=== PATIENT | female | born 1940 | race Asian ===

== ENCOUNTER 2016-12-15 19:01 | Emergency (ER) | payer MEDICARE, OTHER ==
[~2016-12-15] VITALS: Ht 160 cm; Wt 40.9 kg
[~2016-12-15 19:01] MED LIST: [UNRECOGNIZED DRUG - REMARK]; [UNRECOGNIZED DRUG - REMARK]
[2016-12-15 19:03] VITALS: Ht 160 cm; Wt 40.9 kg
[2016-12-15] MEDS ORDERED: DIATR MEGLU/DIATRIZOATE SODIUM 120 ML BTL ONE (19:35)
--- NOTE | 2016-12-15 20:11 | RADRPT ---
PROCEDURE: XR Abdomen CLINICAL INDICATION: Gastrograffin for G tube placement TECHNIQUE: An AP supine radiograph of the abdomen was submitted. COMPARISON: None FINDINGS: Contrast is seen to have been introduced into the stomach through a gastric tube in the stomach and second portion of the duodenum are opacified with no extravasation of contrast evident. The bowel gas pattern is nonspecific. No organomegaly or discrete mass is identified. A 9 mm calcific density projects to the left ilium which may represent a calcified node or residual contrast within a colonic diverticulum. Mild degenerative spine changes are noted. There is evidence of a midline sternotomy and multiple surgical pedro pablo are seen in the upper abdome n and left inferior chest. IMPRESSION: 1. The gastric tube is satisfactorily positioned without extravasation of contrast from the stomach . 2. A 9 mm calcific density projects the left iliac crest which could represent unit internal calcif ication or residual contrast within the colonic diverticulum. 3. Previous midline sternotomy with surgical pedro pablo seen at the left inferior chest and left upper abdomen. Physician Jessie Date Time Electronically viewed and signed by Physician Jessie on 12/15/2016 20:11 /
--- NOTE | 2016-12-15 20:44 | ERD ---
ER Documentation Chief Complaint Date/Time DATE: 12/15/16 TIME: 20:43 Chief Complaint [facility],GTube replacement HPI Patient is a 76-year-old female with encephalopathy who presents with a malfunctioning G-tube. She was brought in by ambulance for G-tube replacement. She came from [facility] home. She needs her G-tube replaced and is not flushing at this time. Her primary doctor is Dr. Cao. ROS All systems reviewed and are negative except as per history of present illness. Medications Home Meds Reported Medications [Cholesterol Medication Unknown Name] No Conflict Check 07/10/13 [Bp Med Unknown Name] No Conflict Check 07/10/13 Allergies Allergies: Coded Allergies: No Known Drug Allergies (Verified Allergy, 07/15/13) PMhx/Soc History of Surgery: Yes (CABG 2011,breast lumpectomy,tumor resection,salpingo- oophorectomy,omentecto) Hx Neurological Disorder: Yes (Cerebral infarction) Hx Respiratory Disorders: No Hx Cardiac Disorders: Yes (HIGH CHOLESTEROL, HTN,CAD,hemiplegia rt side weakness) Hx Psychiatric Problems: No Hx Miscellaneous Medical Probl: No Hx Alcohol Use: No Hx Substance Use: No Hx Tobacco Use: No Smoking Status: Unknown if ever smoked FmHx Unable to obtain Physical Exam Vitals Vital Signs Date Time Temp Pulse Resp B/P Pulse Ox O2 Delivery O2 Flow Rate FiO2 12/15/16 19:03 97.7 97 18 124/71 95 Physical Exam Const: Encephalopathic at baseline Head: Atraumatic Eyes: Normal Conjunctiva ENT: Normal External Ears, Nose and Mouth. Neck: Full range of motion..~ No meningismus. Resp: Clear to auscultation bilaterally Cardio: Regular rate and rhythm, no murmurs Abd: 18 Belgian G-tube in place Skin: No petechiae or rashes Back: No midline or flank tenderness Ext: No cyanosis, or edema Neur: Awake but encephalopathic at baseline Results 24 hrs Current Medications Medications (Trade) Dose Ordered Sig/Joshua Route PRN Reason Start Time Stop Time Status Last Admin Dose Admin Diatrizoate Meglum/ Diatrizoate Sod (Gastrografin 66-10 Solution) 120 ml STK-MED ONCE .ROUTE 12/15/16 19:35 3/23/17 19:36 DC Procedures/MDM G-tube Insertion by me: Sterile technique, local prep and lubrication, time out performed. Location: Epigastrum Device: 18 Belgian G-tube Technique: Kim pressure with twisting motion. Balloon inflation Results: Gastric contents expressed. Compl: none X-ray Abdomen 1V Interpreted by me: Free Air: None Bowel Gas: Nonspecific Contrast: Intraluminal Patient had a G-tube replaced successfully. The patient will be transferred by ambulance back to the nursing facility. She can follow-up with Dr. Cao within 1 week as needed. Departure Diagnosis: Primary Impression: Encounter for feeding tube placement Condition: Fair Patient Instructions: Feeding Tube Replacement Referrals: LUZ PACHECO MD (PCP) Additional Instructions: Call your primary care doctor TOMORROW for an appointment during the next 1 WEEK.Tell the attendance secretary that you were referred from this facility.See the doctor sooner or return here if your condition worsens before your appointment time. VIPIN JOE MD Dec 15, 2016 20:44
[2016-12-15 21:40] VITALS: BP 131/84; PULSE 99; RESP 18
== END 2016-12-15 22:12 | disposition home or self-care (01) ==
LOC: E/R 19:01
DX: Z43.1 Encounter for attention to gastrostomy (principal); I10 Essential (primary) hypertension; I25.10 Atherosclerotic heart disease of native coronary artery without angina pectoris; Z98.61 Coronary angioplasty status
CPT/HCPCS: 74000

== ENCOUNTER 2017-01-09 15:19 | Emergency (ER) | payer MEDICARE, OTHER ==
[~2017-01-09] VITALS: Ht 144.8 cm; Wt 36.4 kg
[2017-01-09 15:39] VITALS: Ht 144.8 cm; Wt 36.4 kg
--- NOTE | 2017-01-09 15:52 | ERD ---
ER Documentation Chief Complaint Date/Time DATE: 01/09/17 TIME: 15:41 Chief Complaint HPI This 76-year-old female is brought in from her facility for having some leakage around her gastrostomy tube. Her feeding tube is been in for years. Supposedly the tube was still flushing well and functional however there was leakage around the tube. There are no other complaints the patient's vital signs are stable and that is been no other issues noted the patient's medical condition. ROS All systems reviewed and are negative except as per history of present illness. Medications Home Meds Reported Medications [Cholesterol Medication Unknown Name] No Conflict Check 07/10/13 [Bp Med Unknown Name] No Conflict Check 07/10/13 Allergies Allergies: Coded Allergies: No Known Drug Allergies (Verified Allergy, 07/15/13) PMhx/Soc History of Surgery: Yes (CABG 2012,breast lumpectomy,tumor resection,salpingo- oophorectomy,omentecto) Hx Neurological Disorder: Yes (Cerebral infarction) Hx Respiratory Disorders: No Hx Cardiac Disorders: Yes (HIGH CHOLESTEROL, HTN,CAD,hemiplegia rt side weakness) Hx Psychiatric Problems: No Hx Miscellaneous Medical Probl: No Hx Alcohol Use: No Hx Substance Use: No Hx Tobacco Use: No Physical Exam Vitals Afebrile vital signs stable Physical Exam Const: [] Head: Atraumatic Eyes: Normal Conjunctiva ENT: Normal External Ears, Nose and Mouth. Neck: Full range of motion..~ No meningismus. Resp: Clear to auscultation bilaterally Cardio: Regular rate and rhythm, no murmurs Abd: Soft, non tender, non distended. Normal bowel sounds Skin: No petechiae or rashes Back: No midline or flank tenderness Ext: No cyanosis, or edema Neur: Awake and alert Psych: Normal Mood and Affect Procedures/MDM Patient's feeding tube was changed. He had a size 8 ET tube the reported had some leakage around although I did not observe any after 60 mL flush on her original 2. I did replace this tube with a 20 Serbian tube in slid in very easily indicating this is probably the appropriate size after stretching erosion from having a long-term feeding tube. It was immediate return of gastric contents. I also performed a 60 CBC flush of water which flushed easily and was able to be returned with mixture of gastric contents. No signs are stable I see no other issues currently. I talked to the as well and instructed that she may return to the emergency room if she develops any other problems. A Dionicio discharging with instructions to obtain PCP follow-up for gastroenterology consult if there are any other problems at the feeding tube. Feeding tube replacement note: Wound was deflated from a 18 Serbian feeding tube. The tube was easily removed. Was replaced with a 20 Serbian feeding tube of the exact same model. It slid in easily. Wound was inflated with 5 mL of saline. There is 60 mL flush of sterile water which returned gastric contents. Patient tolerated the procedure well there was no bleeding or any other complication. No leakage observed around tube. Departure Diagnosis: Primary Impression: Feeding tube dysfunction Condition: Stable Patient Instructions: Feeding Tube Replacement Additional Instructions: Call your primary care doctor TOMORROW for an appointment during the next 2-3 days for a gastroenterology referral if any further problems develop with feeding tube. See the doctor sooner or return here if your condition worsens before your appointment time. RED CANCINO DO Jan 09, 2017 15:52
[2017-01-10] MEDS ORDERED: GLUC1VIA6 IJ (17:35)
[2017-01-10] MEDS ORDERED: ASPI325T4 G-TUBE (17:37)
[2017-01-10] MEDS ORDERED: ASPI325T4 PO (17:37)
[2017-01-10] MEDS ORDERED: FURO20TA3 GTB (17:39)
[2017-01-10] MEDS ORDERED: POTA10TA18 GTB (17:44)
[2017-01-10] MEDS ORDERED: MULT-876 GTB (17:49)
[2017-01-10] MEDS ORDERED: FER325 GTB (17:51)
[2017-01-10] MEDS ORDERED: ATOR10TA65 G-TUBE (17:52)
[2017-01-10] MEDS ORDERED: METO-448 G-TUBE (17:55)
[2017-01-10] MEDS ORDERED: UDCOL G-TUBE (18:04)
[2017-01-10] MEDS ORDERED: MYL80 G-TUBE (18:06)
[2017-01-10] MEDS ORDERED: HYDR-906 G-TUBE (18:08)
[2017-01-10] MEDS ORDERED: IBUP800T25 G-TUBE (18:09)
[2017-01-10] MEDS ORDERED: UDREG GTB (18:11)
== END 2017-01-09 15:44 | disposition home or self-care (01) ==
LOC: E/R 15:19
DX: K94.23 Gastrostomy malfunction (principal); I10 Essential (primary) hypertension; I25.10 Atherosclerotic heart disease of native coronary artery without angina pectoris; Z95.1 Presence of aortocoronary bypass graft

== ENCOUNTER 2017-01-10 17:13 | Inpatient (IN) | payer MEDICARE, OTHER ==
[~2017-01-10] VITALS: Ht 157.5 cm; Wt 40.9 kg
--- NOTE | 2017-01-10 17:21 | ERA ---
ER Documentation Chief Complaint Date/Time DATE: 01/10/17 TIME: 17:21 Chief Complaint Palpitation HPI The patient is a 76-year-old female, presenting to the ER because of palpitation. She is unable to provide history, the history is obtained from [facility] and medical record. She recently had a G-tube placement yesterday Past medical history: Dysphagia, diabetes mellitus, dyslipidemia, history of CVA with aphasia, history of ovarian and breast carcinoma Past surgical history: CABG ROS All systems reviewed and are negative except as per history of present illness. Medications Home Meds Reported Medications Metoclopramide* (Reglan*) 10 Mg/10 Ml Soln, 4 MG GTB Q4 for FOR N/V, ML 01/10/17 Ibuprofen* (Ibuprofen*) 800 Mg Tablet, 800 MG G-TUBE Q8 for MILD PAIN LEVEL 1-3 , TAB 01/10/17 Hydrocodone/Acetaminophen ([place] 5-325 Tablet) 1 Each Tablet, 1 EACH G-TUBE Q6H for MODERATE PAIN, TAB 01/10/17 Simethicone* (Mylicon*) 80 Mg Tab, 80 MG G-TUBE QID Y for FLATULENCE, TAB 01/10/17 Docusate Sodium* (Docusate Sodium* Liq) 50 Mg/5 Ml Liquid, 10 MG G-TUBE BID for STOOL SOFTENER, ML 01/10/17 Metoprolol Tartrate* (Lopressor*) 25 Mg Tab, 12.5 MG G-TUBE BID, #60 TAB HOLD IF SBP<110 FOR HTN 01/10/17 Atorvastatin Calcium (Atorvastatin Calcium) 10 Mg Tablet, 10 MG G-TUBE QHS for HYPERLIPIDIMIA, #30 TAB 01/10/17 Ferrous Sulfate* (Ferrous Sulfate*) 325 Mg Tabec, 325 MG GTB DAILY for SUPPLEMENT, TAB 01/10/17 Multivit-Min/Iron Fum/Folic AC (Qbnah-Znueyny-Kpqxmpot Tablet) 1 Each Tablet, 1 EACH GTB DAILY for SUPPLEMENT, TAB 01/10/17 Potassium Citrate* (Potassium Citrate* ER) 10 Meq Tablet.sa, 20 MEQ GTB DAILY for K+SUPPLEMENT, TAB.SA 01/10/17 Furosemide* (Furosemide*) 20 Mg Tablet, 20 MG GTB DAILY for FOR HTN, #60 TAB 01/10/17 Aspirin* (Aspirin*) 325 Mg Tablet, 325 MG PO BID for CVA PROPHYLAXIS, TAB 01/10/17 Glucagon HCl (Glucagon HCl) 1 Mg Vial, 1 MG IJ, VIAL 01/10/17 Discontinued Reported Medications Aspirin* (Aspirin*) 325 Mg Tablet, 325 MG G-TUBE DAILY, TAB 01/10/17 [Cholesterol Medication Unknown Name] No Conflict Check 07/10/13 [Bp Med Unknown Name] No Conflict Check 07/10/13 Allergies Allergies: Coded Allergies: No Known Drug Allergies (Verified Allergy, Unknown, 01/10/17) PMhx/Soc History of Surgery: Yes (CABG 2012,breast lumpectomy,tumor resection,salpingo- oophorectomy,omentecto) Hx Neurological Disorder: Yes (Cerebral infarction) Hx Respiratory Disorders: No Hx Cardiac Disorders: Yes (HIGH CHOLESTEROL, HTN,CAD,hemiplegia rt side weakness) Hx Psychiatric Problems: No Hx Miscellaneous Medical Probl: No Hx Alcohol Use: No Hx Substance Use: No Hx Tobacco Use: No Physical Exam Vitals Vital Signs Date Time Temp Pulse Resp B/P Pulse Ox O2 Delivery O2 Flow Rate FiO2 01/10/17 17:34 Nasal Cannula 2 01/10/17 17:31 98.0 141 28 140/90 96 Physical Exam Const: No acute distress. Dehydrated Head: Atraumatic. Eyes: Normal Conjunctiva. ENT: Normal External Ears, Nose and Mouth. Neck: Full range of motion. No meningismus. Resp: Clear to auscultation bilaterally. Cardio: Regular tachycardic Abd: Soft, non distended, normal bowel sounds, non tender. Positive for G-tube Skin: No petechiae or rashes. Back: No midline or flank tenderness. Ext: No cyanosis, or edema. Neur: Limited due to her condition Psych: Unable to perform due to her condition Result Diagram: 01/10/17 1750 01/10/17 1750 Results 24 hrs Laboratory Tests Test 01/10/17 17:50 01/10/17 18:46 01/10/17 18:50 01/10/17 19:30 White Blood Count 17.310^3/ul Red Blood Count 3.8310^6/ul Hemoglobin 10.6g/dl Hematocrit 34.2% Mean Corpuscular Volume 89.3fl Mean Corpuscular Hemoglobin 27.7pg Mean Corpuscular Hemoglobin Concent 31.0g/dl Red Cell Distribution Width 15.9% Platelet Count 78516^3/UL Mean Platelet Volume 9.5fl Neutrophils % 83.8% Lymphocytes % 6.6% Monocytes % 6.8% Eosinophils % 0.2% Basophils % 0.3% Nucleated Red Blood Cells % 0.1/100WBC Neutrophils # 14.510^3/ul Lymphocytes # 1.110^3/ul Monocytes # 1.210^3/ul Eosinophils # 0.010^3/ul Basophils # 0.110^3/ul Nucleated Red Blood Cells # 0.010^3/ul Prothrombin Time 14.3Sec Prothrombin Time Ratio 1.1 INR International Normalized Ratio 1.11 Activated Partial Thromboplast Time 25.2Sec Sodium Level 144mmol/L Potassium Level 5.1mmol/L Chloride Level 108mmol/L Carbon Dioxide Level 22mmol/L Anion Gap 19 Blood Urea Nitrogen 58mg/dl Creatinine 0.72mg/dl Glucose Level 220mg/dl Lactic Acid Level 7.4mmol/L 4.9mmol/L Calcium Level 9.3mg/dl Total Bilirubin 0.3mg/dl Direct Bilirubin 0.00mg/dl Indirect Bilirubin 0.3mg/dl Aspartate Amino Transf (AST/SGOT) 40IU/L Alanine Aminotransferase (ALT/SGPT) 18IU/L Alkaline Phosphatase 129IU/L Troponin I 0.014ng/ml Total Protein 8.1g/dl Albumin 3.6g/dl Globulin 4.50g/dl Albumin/Globulin Ratio 0.80 Urine Color LT. YELLOW Urine Clarity SLIGHTLY CLOUDY Urine pH 6.0 Urine Specific [place] 1.025 Urine Ketones NEGATIVE Urine Nitrite POSITIVE Urine Bilirubin NEGATIVE Urine Urobilinogen 0.2 E.U./dL Urine Leukocyte Esterase 2+ Urine Microscopic RBC Pending Urine Microscopic WBC Pending Urine Hemoglobin TRACE Urine Glucose NEGATIVE% Urine Total Protein 1+ Bedside Urine pH (LAB) 6.0 Bedside Urine Protein (LAB) 2+ Bedside Urine Glucose (UA) Negative Bedside Urine Ketones (LAB) Trace Bedside Urine Blood Trace-lysed Bedside Urine Nitrite (LAB) Positive Bedside Urine Leukocyte Esterase (L 1+ Current Medications Medications (Trade) Dose Ordered Sig/Joshua Route PRN Reason Start Time Stop Time Status Last Admin Dose Admin Sodium Chloride 1,270 ml @ 1,270 mls/hr BOLUS X1 ONCE IV 01/10/17 18:00 01/10/17 18:59 DC 01/10/17 18:10 Vancomycin HCl 250 ml @ 125 mls/hr ONCE IVPB 01/10/17 19:00 01/10/17 20:59 01/10/17 20:05 Piperacillin Sod/ Tazobactam Sod (Zosyn 3.375gm/ 100 ml (Pmx)) 100 ml @ 200 mls/hr ONCE ONCE IVPB 01/10/17 19:00 01/10/17 19:29 DC 01/10/17 19:36 Procedures/MDM [place] [id number] Rad[facility] Main Line: [phone] DIAGNOSTIC IMAGING REPORT Patient: OLIVER REYNA : 1940 Age: 76 Sex: F MR #: [id number] DOS: 01/10/17 1730 Ordering MD: JOHN SMITH MD Location: E/R Room/Bed: PROCEDURE: XR Chest. CLINICAL INDICATION: Possible sepsis. TECHNIQUE: PA and Lateral views of the chest were obtained. COMPARISON: None. FINDINGS: The soft tissues are normal. A mediastinotomy was performed. There are clips in the left axilla. The heart is mildly enlarged. The cardiomediastinal silhouette and hilar structures are normal. The pulmonary vasculature is normal. There are vascular calcifications in the left-sided aorta with clips in the left side of the mediastinum. There are infiltrates in the left lung. There is a left pleural effusion. IMPRESSION: 1. There are pulmonary infiltrates in the left lung which may be the result of a pneumonia. 2. There is a left pleural effusion which is probably partially loculated. 3. Status post mediastinotomy with evidence of prior left axillary node dissection. 4. Atherosclerosis of the aortic arch. RPTAT:AAJJ Physician Amy Date Time Electronically viewed and signed by Physician Amy on 01/10/2017 18:52 JM/ CC: JOHN SMITH MD EKG: Read by emergency physician Rate/Rhythm: Sinus tachycardia 133 beats/min QRS, ST, T-waves: No ST elevation, no T inversion, left atrial enlargement, anterior ST and T abnormality Impression: Abnormal EKG MEDICAL MAKING DECISION: The patient is a 76-year-old female, presenting with acute septic shock, acute pneumonia, acute left pleural effusion, acute dehydration, acute cystitis. She was treated with Zosyn IV because suspicious for aspiration pneumonia, vancomycin IV, normal saline 30 mL/kg IV The differential diagnoses considered include but are not limited to aspiration pneumonia, pyelonephritis, intra-abdominal pathology Admit MDM: Patient's infectious symptoms have not stabilized and the patient is at risk of rapid decompensation. The patient will be admitted for careful hydration, antibiotic therapy, and infectious source control. Severe Sepsis criteria: Infectious source: Pneumonia, cystitis End organ damage indicated by: Lactate > 2.0 mmol/L Hypotension (SBP < 90 or >40 mmHG drop or MAP < 65) Acute Resp Failure (sat < 92% w/o oxygen) Sepsis Management: Time of recognition of severe sepsis/septic shock:18:00 Within 3 hours of recognition: Blood cultures x 2 before broad-spectrum antibiotics: Yes 30 ml/kg NS bolus completed Initial lactate 7.4 Repeat lactate pending Critical Care: Critical care time 35 minutes Emergent fluid management while maintaining close respiratory support. Provision of immediate and broad-spectrum antibiotic therapy. Simultaneous assessment for possible sources in order to direct targeted therapy. Consideration for invasive and chemical support to prevent cardiopulmonary collapse. Septic Shock Assessment: Any lactic acid > 4.0 yes Persistent hypotension (SBP < 90 or 40 mmHg drop, MAP < 65) despite 30 mL/kg IV fluid bolusno Volume Re-assessment for Septic Shock (post 30 ml/kg bolus): Temp96.8, BP138/79, HR96, RR22, Pox98% 3L Heart regular rate & rhythm Lungs no crackles Skin Warm & dry & pink Cap Refill less than 2 seconds Peripheral pulses radially present Persistent Hypotension Treatment: Comfort care no Central line not indicated Vasopressor started *not indicated I considered further perfusion assessment with CVP measurement, SCVO2, bedside ultrasound volume assessment, passive leg raise, trial of further fluid bolus. And proceeded withIVF Departure Diagnosis: Primary Impression: Septic shock Additional Impressions: Pneumonia Cystitis Pleural effusion on left Dehydration Anemia Condition: Serious Comments I discussed the findings with the patient. I discussed the patient with her physician Dr. Cao who was made aware of the lab, the treatment, the patient condition. The patient is admitted to telemetry at 7:10 PM JOHN SMITH MD Jan 10, 2017 17:21
[2017-01-10] MEDS ORDERED: GLUC1VIA6 IJ (17:35)
[2017-01-10] MEDS ORDERED: ASPI325T4 PO (17:37)
[2017-01-10] MEDS ORDERED: ASPI325T4 G-TUBE (17:37)
[2017-01-10] MEDS ORDERED: FURO20TA3 GTB (17:39)
[2017-01-10] MEDS ORDERED: POTA10TA18 GTB (17:44)
[2017-01-10] MEDS ORDERED: MULT-876 GTB (17:49)
[2017-01-10] MEDS ORDERED: FER325 GTB (17:51)
[2017-01-10] MEDS ORDERED: ATOR10TA65 G-TUBE (17:52)
[2017-01-10] MEDS ORDERED: METO-448 G-TUBE (17:55)
[2017-01-10] MEDS ORDERED: SOD CHLORIDE 0.9% 1,270 ML IV ONE (18:00)
[2017-01-10 18:02] LABS: ADD SCAN DIFF NO
[2017-01-10] MEDS ORDERED: UDCOL G-TUBE (18:04)
[2017-01-10 18:05] LABS: BASOPHIL # 0.1 10^3/ul (0.0-0.1); BASOPHILS % 0.3 % (0.0-2.0); EOSINOPHILS % 0.2 % (0.0-7.0); HEMATOCRIT 34.2 % (37.0-47.0); HEMOGLOBIN 10.6 g/dl (12.0-16.0); LYMPHOCYTES # 1.1 10^3/ul (0.8-2.9); LYMPHOCYTES % 6.6 % (15.0-51.0); MEAN CORPUSCULAR HEMOGLOBIN 27.7 pg (29.0-33.0); MEAN CORPUSCULAR VOLUME 89.3 fl (82.0-101.0); MEAN PLATELET VOLUME 9.5 fl (7.4-10.4); MONOCYTE # 1.2 10^3/ul (0.3-0.9); MONOCYTES % 6.8 % (0.0-11.0); NEUTROPHIL # 14.5 10^3/ul (1.6-7.5); NEUTROPHILS % 83.8 % (39.0-77.0); NUCLEATED RED BLOOD CELLS% 0.1 /100WBC (0.0-0.0); PLATELET COUNT 440 10^3/UL (140-415); RED BLOOD COUNT 3.83 10^6/ul (4.20-5.40); RED CELL DISTRIBUTION WIDTH 15.9 % (11.5-14.5); WHITE BLOOD COUNT 17.3 10^3/ul (4.8-10.8)
[2017-01-10] MEDS ORDERED: MYL80 G-TUBE (18:06)
[2017-01-10] MEDS ORDERED: HYDR-906 G-TUBE (18:08)
[2017-01-10] MEDS ORDERED: IBUP800T25 G-TUBE (18:09)
[2017-01-10] MEDS ORDERED: UDREG GTB (18:11)
[2017-01-10 18:15] LABS: INR 1.11; PROTIME 14.3 Sec (12.2-14.2); PT RATIO 1.1
[2017-01-10 18:16] LABS: PARTIAL THROMBOPLASTIN TIME 25.2 Sec (25.0-35.0)
[2017-01-10 18:22] LABS: ALBUMIN 3.6 g/dl (3.3-4.9); ALBUMIN/GLOBULIN RATIO 0.8; BILIRUBIN,INDIRECT 0.3 mg/dl (0-1.1); BILIRUBIN,TOTAL 0.3 mg/dl (0.2-1.3); CALCIUM 9.3 mg/dl (8.4-10.2); CREATININE 0.72 mg/dl (0.44-1.00); POTASSIUM 5.1 mmol/L (3.5-5.1); TOTAL PROTEIN 8.1 g/dl (6.1-8.1)
[2017-01-10 18:32] LABS: TROPONIN-I 0.014 ng/ml (0.00-0.12)
[2017-01-10 18:50] LABS: URINE BLOOD (Dip) POC Trace-lysed (NEGATIVE)
--- NOTE | 2017-01-10 18:52 | RADRPT ---
PROCEDURE: XR Chest. CLINICAL INDICATION: Possible sepsis. TECHNIQUE: PA and Lateral views of the chest were obtained. COMPARISON: None. FINDINGS: The soft tissues are normal. A mediastinotomy was performed. There are clips in the left axilla. The heart is mildly enlarged. The cardiomediastinal silhouette and hilar structures are normal. The pulmonary vasculature is normal. There are vascular calcifications in the left-sided aorta with cli ps in the left side of the mediastinum. There are infiltrates in the left lung. There is a left ple ural effusion. IMPRESSION: 1. There are pulmonary infiltrates in the left lung which may be the result of a pneumonia. 2. There is a left pleural effusion which is probably partially loculated. 3. Status post mediastinotomy with evidence of prior left axillary node dissection. 4. Atherosclerosis of the aortic arch. RPTAT:AAJJ Physician Amy Date Time Electronically viewed and signed by Physician Amy on 01/10/2017 18:52 FRITZ/
[2017-01-10] MEDS ORDERED: VANCOMYCIN 1 GM (PMX) 250 ML IVPB SCH (19:00)
[2017-01-10] MEDS ORDERED: PIPER-TAZO 3.375 GM IV (PMX) 100 ML IVPB ONE (19:00)
[2017-01-10 19:05] LABS: ADD UMIC YES; URINE BILIRUBIN (Dip) NEGATIVE (NEGATIVE); URINE BLOOD (Dip) TRACE (NEGATIVE); URINE COLOR LT. YELLOW (YELLOW); URINE GLUCOSE (Dip) NEGATIVE (NEGATIVE); URINE KETONES (Dip) NEGATIVE (NEGATIVE); URINE LEUKOCYTE ESTERASE (Dip) 2+ (NEGATIVE); URINE NITRITE (Dip) POSITIVE (NEGATIVE); URINE TOTAL PROTEIN (Dip) 1+ (NEGATIVE); URINE UROBILINOGEN (Dip) 0.2 E.U./dL (0.1-1.0)
[2017-01-10] MEDS ORDERED: SOD CHLORIDE 0.9% 1,000 ML IV ONE (21:00)
[2017-01-10 21:03] LABS: BACTERIA,URINE MANY; SQUAMOUS EPITHELIAL CELL,UR MODERATE
[2017-01-10] MEDS: SOD CHLORIDE 0.9% 1,000 ML IV SCH (21:35)
[2017-01-10] MEDS ORDERED: ACETAMINOPHEN 325 MG TAB PO PRN (22:00)
[2017-01-10] MEDS ORDERED: NACL 0.9% 3 ML SYG IV SCH (22:00)
[2017-01-10] MEDS ORDERED: ALBUTEROL/IPRATROPIUM (NEB) 3 ML AMP NEB PRN (22:00)
[2017-01-10] MEDS ORDERED: VANCOMYCIN IV PER PHARMACY XX SCH (22:00)
[2017-01-10] MEDS ORDERED: LORAZEPAM 2 MG INJ IV PRN (22:00)
[2017-01-10] MEDS ORDERED: ONDANSETRON 4 MG INJ IV PRN (22:00)
[2017-01-10] MEDS ORDERED: HYDROCODONE/APAP (5/325) TAB PO PRN (22:00)
[2017-01-10] MEDS ORDERED: DOCUSATE SODIUM 100 MG CAP PO PRN (22:00)
[2017-01-10 22:59] LABS: AADO2 Arterial 116.9 mmHg (7.0-24.0); Allen Test ACCEPTAB; Arterial Base Excess -3.7 mmol/L (-3.0-3); Arterial COHb 0.3 % (0.0-3.0); Arterial Fraction of Oxyhgb 97.4 % (93.0-99.0); Arterial HCO3 20.4 mmol/L (22.0-26.0); Arterial MetHb 0.4 % (0.0-1.5); Arterial Total Hemglobin 10.5 g/dl (12.0-18.0); Blood Gas IEPAP 15/5; MODE MASK - BIPAP
[2017-01-11] VITALS (13 sets, daily range): BP systolic 121–207; BP diastolic 72–129; PULSE 112–169; RESP 16–22; Ht 157.5 cm; Wt 40.9 kg
[2017-01-11] MEDS: morphine 2 MG INJ IV PRN ×4 (02:43→17:48)
[2017-01-11] MEDS ORDERED: PANTOPRAZOLE (EC) 40 MG TAB PO SCH (06:00)
[2017-01-11] MEDS: PIPER-TAZO 3.375 GM IV (PMX) 100 ML IV SCH ×2 (06:34→14:21)
[2017-01-11] MEDS: PANTOPRAZOLE 40 MG INJ IV SCH (06:54)
[2017-01-11] MEDS: DOCUSATE SODIUM 10 MG/ML (10ML CUP) GTB SCH ×2 (08:10→21:02)
[2017-01-11] MEDS: HEPARIN 5,000 UNIT/0.5 ML VIAL SC SCH ×2 (08:11→21:06)
[2017-01-11] MEDS: ASPIRIN 325 MG TAB PO SCH (08:11)
[2017-01-11] MEDS: SOD CHLORIDE 0.9% 1,000 ML IV SCH ×2 (08:42→14:22)
[2017-01-11] MEDS ORDERED: ASPIRIN 325 MG TAB PO SCH (09:00)
[2017-01-11] MEDS ORDERED: METOPROLOL 25 MG TAB GTB SCH (09:00)
[2017-01-11] MEDS ORDERED: IPRATROPIUM (NEB) 0.5 MG/2.5 ML AMP HHN PRN (10:00)
[2017-01-11] MEDS ORDERED: LEVALBUTEROL (NEB) 0.63 MG/3 ML AMP HHN PRN (10:00)
[2017-01-11 10:58] LABS: ADD SCAN DIFF NO
--- NOTE | 2017-01-11 11:00 | HP ---
DATE OF ADMISSION: 01/10/2017 REASON FOR ADMISSION: Sepsis, pneumonia, urinary tract infection, acute respiratory failure. HISTORY OF PRESENT ILLNESS: The patient is a very unfortunate, very ill 76-year-old French female w ith history of coronary artery disease, status post CABG, breast cancer status post lumpectomy, ovar lorraine cancer stage IV, status post recent debulking surgery as the patient was positive for carcinomat osis, also history of hemorrhagic stroke. The patient has dysphagia, aphasia, G-tube feeding. She has been seen by the oncologist, Dr. Delilah Novak, who discussed about palliative chemo versus hospice care. Overall, the patient's long-term prognosis is very poor. The patient currently resides at [facility]. She presented briefly to the ER, actually yesterday, for G -tube malfunction and a G-tube was placed and then she was transferred back to [facility]. I w as informed that she has slight erythema in the abdominal area, so I started her on vancomycin. I o rdered labs and I noted that patient's white count was 19, BUN and creatinine was around 60/0.8, so I broadened her antibiotic regimen to vancomycin and cefepime with IV hydration. I went to see the patient and the patient appeared to be tachycardic, quite weak. Case discussed in detail with doyle campbell and we decided to transfer her to the hospital. Upon arrival to the hospital, the patient was evaluated more extensively. White count was 17.3, hem oglobin 10.6, hematocrit 34. BUN and creatinine was elevated at 58/0.72, and lactic acid was remark ably high at 7.4. The patient was slightly hypoxic and tachypneic. She was placed on BiPAP. She u nderwent further testing including a chest x-ray which showed there are pulmonary infiltrates in the left lung, which may be the result of pneumonia. There is a left pleural effusion which probably i s partially loculated, status post mediastinotomy with evidence of prior left axillary node dissecti on. Atherosclerosis of the aortic arch was seen. UA was as well positive, she had positive nitrite s, +2 leukocyte esterase and WBCs greater than 50, all suggestive of urosepsis, pneumonia. Overall, she was tachycardic but blood pressure was under control. Upon brief discussion with the family, t he son did not want aggressive measures, but it is not in paper yet, but he did state that they do w ant any chest compressions. I just called the son again, his name is Brayan, and tried to gain more information. Overall, the patient is in guarded condition. The patient has been anxious, she has b een tachycardic, now heart rate is around the 120s. The patient is arousable and alert, but overall in discomfort. The patient is admitted for further care. PAST MEDICAL HISTORY: Includes: 1. Coronary artery disease, status post CABG. 2. History of breast cancer, status post lumpectomy and lymph node dissection on the left side. 3. Metastatic ovarian cancer with carcinomatosis, status post debulking surgery. 4. History of hemorrhagic cerebrovascular accident. 5. Dysphagia. 6. Aphasia. 7. Previous history of Clostridium difficile colitis. 8. Anemia. PAST SURGICAL HISTORY: Includes CABG, salpingo-oophorectomy, debulking surgery for metastatic ovari an cancer. Previous echocardiogram showed ejection fraction of 60%. MRI of the brain recently showed right occ ipital medial temporal infarct, right LEG ASSEMBLER. The patient's CT of abdomen and pelvis shows as before c arcinomatosis again. MEDICATIONS: The patient's medications include the followin. Ferrous sulfate 325 mg daily. 2. Lipitor 20 mg at bedtime. 3. Metoprolol 12.5 b.i.d. 4. Simethicone 80 mg p.r.n. 5. Trenary p.r.n. 6. Motrin p.r.n. 7. Accu-Chek before meals and at bedtime. 8. Lasix 20 mg daily. 9. Aspirin 325 mg daily. 10. KCl 10 mEq 2 capsules daily. 11. I started her on cefepime and vancomycin yesterday. 12. She has been on Glucerna 1.2 at 65 mL for 20 hours. PHYSICAL EXAMINATION: VITAL SIGNS: Temperature is 97.4, pulse right now at bedside is in 120s, saturation is 97% on nasal cannula, blood pressure 124/88. GENERAL: The patient is sick looking, pale, temporal wasting. CARDIOVASCULAR: S1 and S2, tachycardic. LUNGS: Decreased bilaterally, slight rhonchi and wheezing is noted. ABDOMEN: Soft. There is a G-tube in place. Slight erythema around the site. There is a surgical scar with slight erythema noted. LOWER EXTREMITIES: No clubbing, cyanosis, or edema. The patient is spontaneously moving all extremi ties. GENITOURINARY: Milian to gravity. LABORATORY DATA: White count is 17.3, hemoglobin 10.6, hematocrit 34, platelet count 440, neutrophi ls 84%, lymphocytes 7%. Chemistry: Sodium is 144, potassium 5.1, chloride 108, bicarbonate 22, BUN is 58, creatinine 0.72, glucose of 220. Lactic acid, last one was 5.9, I ordered one for this morn ing, it is pending. All labs today are pending. These labs were done yesterday on admission. AST 40, ALT 18, alkaline phosphatase 129. Albumin 3.6. UA was positive as noted above. INR 1.11. ABG done on admission shows a pH of 7.4, pCO2 of 33, pO2 of 130, bicarbonate 20, saturation is 98%. Chest x-ray as above. EKG: Sinus tachycardia, probable left atrial enlargement, ST-T abnormality, consider anterior ischemia, 133 beats per minute. ASSESSMENT AND PLAN: This is a very unfortunate, very sick 76-year-old female with histor y of coronary artery disease, metastatic ovarian cancer stage IV with carcinomatosis, status post de bulking surgery, anemia, history of hemorrhagic cerebrovascular accident, who presents septic second zacarias to pneumonia and urinary tract infection. 1. Respiratory. O2 support will be provided. Noted ABG results. Breathing treatment will be prov ided as needed and we will monitor. The patient will be kept n.p.o. by mouth. 2. Cardiovascular. The patient is tachycardic, likely from sepsis, anxiety, possible pain. We olga l treat underlying acute medical issues and monitor closely in telemetry unit. The patient will be placed on deep venous thrombosis prophylaxis with heparin. Continue beta blockers. We will follow. 3. Gastrointestinal. The patient will be placed on Protonix for gastrointestinal prophylaxis. 4. Infectious disease. The patient is septic with urinary tract infection and pneumonia. The heaven ent was started on cefepime and vancomycin. Follow up all cultures. Monitor for diarrhea as bakari flores has history of Clostridium difficile. Condition is guarded. 5. Metastatic ovarian cancer with poor prognosis. She was supposed to undergo another CAT scan to evaluate her malignancy. Dr. Delilah Novak is her oncologist. 6. Dysphagia and aphasia, status post cerebrovascular accident. We will start G-tube feedings soon . N.p.o. by mouth. The patient did, I believe, pass a swallow evaluation at the [facility], but now she remains n.p.o. by mouth. 7. History of coronary artery disease. The patient will continue aspirin and statin. 8. Anemia. Monitor hemoglobin and hematocrit, p.r.n. transfusion will be given. 9. Acute renal failure, likely secondary to prerenal azotemia and dehydration secondary to sepsis. Continue with fluid hydration. 10. The patient is no chest compressions. We will discuss further code status and plan of care and expectations from the family. Overall, her prognosis is guarded, long-term prognosis is very poor. Overall, would recommend comfo rt measures and possible even hospice care. I had spoken with the son yesterday and visited the pat ient yesterday at [facility]. We will continue with close communication with the family. We w ill follow. Dictated By: LUZ MURO/PHYLLIS Conf#: [id number] DID#: [id number]
[2017-01-11 11:04] LABS: BASOPHILS % 0.2 % (0.0-2.0); EOSINOPHILS % 0.1 % (0.0-7.0); HEMOGLOBIN 9.4 g/dl (12.0-16.0); LYMPHOCYTES # 0.9 10^3/ul (0.8-2.9); LYMPHOCYTES % 4.5 % (15.0-51.0); MEAN CORPUSCULAR HEMOGLOBIN 26.5 pg (29.0-33.0); MEAN CORPUSCULAR HGB CONC 29.4 g/dl (32.0-37.0); MEAN CORPUSCULAR VOLUME 90.1 fl (82.0-101.0); MEAN PLATELET VOLUME 9.2 fl (7.4-10.4); MONOCYTE # 1.2 10^3/ul (0.3-0.9); MONOCYTES % 5.9 % (0.0-11.0); NEUTROPHIL # 16.9 10^3/ul (1.6-7.5); NEUTROPHILS % 87.2 % (39.0-77.0); PLATELET COUNT 339 10^3/UL (140-415); RED BLOOD COUNT 3.55 10^6/ul (4.20-5.40); WHITE BLOOD COUNT 19.3 10^3/ul (4.8-10.8)
[2017-01-11 11:30] LABS: ALBUMIN/GLOBULIN RATIO 0.76; BILIRUBIN,INDIRECT 0.3 mg/dl (0-1.1); BILIRUBIN,TOTAL 0.3 mg/dl (0.2-1.3); CALCIUM 7.7 mg/dl (8.4-10.2); CREATININE 0.64 mg/dl (0.44-1.00); POTASSIUM 4.8 mmol/L (3.5-5.1); TOTAL PROTEIN 6.9 g/dl (6.1-8.1)
[2017-01-11 12:00] LABS: THYROID STIMULATING HORMONE 0.839 MIU/L (0.465-4.680)
[2017-01-11] MEDS: INSULIN ASPART [NOVOLOG] 3 ML PEN SC SCH ×3 (12:00→21:00)
[2017-01-11] MEDS ORDERED: LORAZEPAM 2 MG INJ IV ONE (16:30)
[2017-01-11] MEDS ORDERED: FUROSEMIDE 40 MG INJ IV ONE (16:30)
[2017-01-11] MEDS: metroNIDAZOLE 500 MG/NS (PMX) 100 ML IVPB SCH ×2 (16:41→22:48)
[2017-01-11] MEDS: METHYLPREDNISOLONE 125 MG INJ IV SCH ×2 (16:41→22:48)
--- NOTE | 2017-01-11 16:43 | PN ---
DATE: ADDENDUM: I am seeing her a second time. The is at bedside. The patient appears very anxious, compla ining of shortness of breath. Case discussed with nursing staff. We will prescribe her Lasix, ster oids, breathing treatments, and Ativan as the patient is very, very anxious. She remains tachycardi c. We will ask Dr. Cosby, the electro mechanic, to see the patient in consultation. We also ordered a n echocardiogram and BNP for tomorrow. We will continue to monitor closely. The patient overall is very ill. She has metastatic stage IV ovarian cancer with carcinomatosis with recent debulking keyana kaz. Overall, long-term prognosis is very poor. The patient remains in telemetry unit. Lactic ac id now normalized at 2.1 as the patient has been receiving fluids and antibiotic management. We olga l add Flagyl to the regimen as the patient also previously had a history of Clostridium difficile co litis. We will follow closely. The patient's condition remains guarded. Dictated By: LUZ MURO/PHYLLIS Conf#: [id number] DID#: [id number]
[2017-01-11] MEDS: IPRATROPIUM (NEB) 0.5 MG/2.5 ML AMP HHN SCH ×2 (17:30→20:07)
[2017-01-11] MEDS: VANCOMYCIN 500MG/NS (PMX) 100 ML IVPB SCH (21:01)
[2017-01-11] MEDS: ATORVASTATIN 10 MG TAB GTB SCH (21:02)
[2017-01-11] MEDS: CEFEPIME 1GM/50 ML (PMX) 50 ML IVPB SCH (21:03)
[2017-01-11] MEDS: METOPROLOL 25 MG TAB GTB SCH (21:18)
[2017-01-11] MEDS: LORAZEPAM 2 MG INJ IV PRN (22:49)
[2017-01-12] VITALS (11 sets, daily range): BP systolic 125–138; BP diastolic 61–95; PULSE 104–128; RESP 16–20
[2017-01-12] MEDS: morphine 2 MG INJ IV PRN ×2 (01:31→17:21)
[2017-01-12] MEDS: IPRATROPIUM (NEB) 0.5 MG/2.5 ML AMP HHN SCH ×6 (01:44→20:06)
[2017-01-12] MEDS: ACCU-CHEK XX SCH (02:00)
[2017-01-12] MEDS: METHYLPREDNISOLONE 125 MG INJ IV SCH (05:17)
[2017-01-12] MEDS: PANTOPRAZOLE 40 MG INJ IV SCH (05:17)
[2017-01-12] MEDS: LORAZEPAM 2 MG INJ IV PRN (05:18)
[2017-01-12] MEDS: metroNIDAZOLE 500 MG/NS (PMX) 100 ML IVPB SCH ×3 (05:18→22:24)
[2017-01-12] MEDS ORDERED: GLUCAGON 1 MG INJ IM PRN (07:30)
[2017-01-12] MEDS ORDERED: GLUCOSE GEL 15 GRAM TUBE BUCCAL PRN (07:30)
[2017-01-12] MEDS ORDERED: DEXTROSE 50% 50 ML SYRINGE IV PRN ×2 (07:30)
[2017-01-12] MEDS ORDERED: GLUCOSE GEL 15 GRAM TUBE PO PRN ×2 (07:30)
[2017-01-12 07:43] LABS: ADD SCAN DIFF NO
[2017-01-12 07:48] LABS: BASOPHILS % 0.1 % (0.0-2.0); HEMATOCRIT 33.9 % (37.0-47.0); HEMOGLOBIN 9.9 g/dl (12.0-16.0); MEAN CORPUSCULAR HEMOGLOBIN 26.8 pg (29.0-33.0); MEAN CORPUSCULAR HGB CONC 29.2 g/dl (32.0-37.0); MEAN CORPUSCULAR VOLUME 91.6 fl (82.0-101.0); MEAN PLATELET VOLUME 9.8 fl (7.4-10.4); MONOCYTE # 0.2 10^3/ul (0.3-0.9); MONOCYTES % 1.4 % (0.0-11.0); NEUTROPHIL # 15.4 10^3/ul (1.6-7.5); NEUTROPHILS % 90.7 % (39.0-77.0); NUCLEATED RED BLOOD CELLS% 0.1 /100WBC (0.0-0.0); PLATELET COUNT 382 10^3/UL (140-415); RED CELL DISTRIBUTION WIDTH 16.5 % (11.5-14.5)
[2017-01-12 07:57] LABS: MAGNESIUM 2.6 mg/dl (1.7-2.5); PHOSPHORUS 4.2 mg/dl (2.5-4.9)
[2017-01-12 08:00] LABS: ALBUMIN 3.5 g/dl (3.3-4.9); ALBUMIN/GLOBULIN RATIO 0.81; BILIRUBIN,INDIRECT 0.4 mg/dl (0-1.1); BILIRUBIN,TOTAL 0.4 mg/dl (0.2-1.3); CALCIUM 8.3 mg/dl (8.4-10.2); CREATININE 0.87 mg/dl (0.44-1.00); POTASSIUM 4.3 mmol/L (3.5-5.1); TOTAL PROTEIN 7.8 g/dl (6.1-8.1)
[2017-01-12] MEDS: INSULIN ASPART [NOVOLOG] 3 ML PEN SC SCH ×4 (08:00→21:00)
[2017-01-12] MEDS: DOCUSATE SODIUM 10 MG/ML (10ML CUP) GTB SCH ×2 (08:10→21:46)
[2017-01-12] MEDS: METOPROLOL 25 MG TAB GTB SCH ×5 (08:14→21:00)
[2017-01-12] MEDS: CEFEPIME 1GM/50 ML (PMX) 50 ML IVPB SCH ×2 (08:14→21:46)
[2017-01-12] MEDS: ASPIRIN 325 MG TAB PO SCH (08:15)
[2017-01-12] MEDS: HEPARIN 5,000 UNIT/0.5 ML VIAL SC SCH ×2 (08:16→21:00)
[2017-01-12 08:28] LABS: THYROID STIMULATING HORMONE 0.585 MIU/L (0.465-4.680)
[2017-01-12] MEDS ORDERED: FUROSEMIDE 40 MG INJ IV ONE (09:00)
--- NOTE | 2017-01-12 09:17 | RADRPT ---
PROCEDURE: XR Chest. CLINICAL INDICATION: sob TECHNIQUE: Single frontal view of the chest was obtained. COMPARISON: Chest x-ray from 01/10/2017 FINDINGS: Sternotomy wires and clips consistent with CABG are again noted. There are surgical clips in the left axilla consistent with prior axillary lymph node dissection. The aortic arch is calcified. Heart size is within normal limits. There is a stable large effusion on the left including in the fissure which obscures evaluation of t he infiltrate seen previously in the left lung. The right lung is clear without evidence of an effusion. There is decreased osseous mineralization. IMPRESSION: No significant interval change compared to the prior chest x-ray from 01/10/2017. RPTAT: EE Physician Moise Date Time Electronically viewed and signed by Physician Moise on 01/12/2017 09:17 /
[2017-01-12] MEDS: LISINOPRIL 10 MG TAB GTB SCH (10:37)
[2017-01-12] MEDS: ASPIRIN 81 MG TAB GTB SCH (10:37)
[2017-01-12] MEDS ORDERED: LIDOCAINE 1% (MPF) 5 ML VIAL SC ONE ×2 (12:00→19:00)
--- NOTE | 2017-01-12 12:30 | PN ---
DATE: 01/12/2017 SUBJECTIVE: The patient seen. The patient now resting, eyes are closed, appears to be more comfort able. I spoke with the at bedside and he gave me his phone and I spoke with the patient's n iece. We discussed briefly, the patient's guarded prognosis and possible recommendation for comfort measures such as hospice would be probably a good recommendation, which I made. I appreciate Dr. Ligia shultz's cardiology input. I also asked for pulmonology consult as the chest x-ray shows persistent l eft pleural effusion. The patient may benefit from thoracentesis for symptomatic relief. Yesterday , I did start the patient on steroids, diuretic therapy and breathing treatments to support her resp iratory failure. PHYSICAL EXAMINATION: VITAL SIGNS: Temperature is 98.1, afebrile, remains tachycardic at 104, respirations 18, blood pres sure 125/78, saturation is 98% on 2 liters. GENERAL: The patient overall is sick looking, frail, pale. CARDIOVASCULAR: S1 and S2, tachycardic. LUNGS: Actually now clear with decreased breath sounds on the left compared to the right. ABDOMEN: Soft, slightly distended. Slight discomfort upon deep palpation. She has a G-tube in jeannie ce with abdominal scar as patient is status post debulking surgery for her carcinomatosis. EXTREMITIES: There is no clubbing, cyanosis, or edema. The patient is spontaneously moving all ext remities. The patient overall right now lethargic, she did receive Ativan this morning, but overall more comfortable. LABORATORY DATA: White count 17, hemoglobin 9.9, hematocrit 34, platelet count 382, neutrophils 91% , lymphocytes 6%. Chemistry: Sodium is 149, potassium 4.3, chloride 119, bicarbonate 17, BUN 46, c reatinine 0.87, glucose of 119. Last glucose level 117. Hemoglobin A1c 6.7. Magnesium 2.6. BNP i s high at 12,100. TSH 0.585. Albumin is 3.5. UA was positive on admission. Microbiology still pe nding as urine culture on admission showed gram-negative rods 50 to 60,000, but I did start the pat ient already on antibiotics at the halfway. Blood cultures are negative. Chest x-ray done today shows the following: No interval change. There is basically sternotomy wire s and clips with CABG. There are surgical clips in the left axilla consistent with prior axillary l ymph node dissection. There is stable large effusion on the left, including in the fissure which ob scures evaluation of the infiltrate seen previously in the left lung. The right lung is clear witho ut evidence of an effusion. There is decreased osseous mineralization. MEDICATIONS: 1. Aspirin 81 mg daily. 2. Lopressor 25 q.i.d. 3. Zestril 10 mg daily. 4. Hypoglycemia protocol. 5. Accu-Chek before meals and at bedtime. 6. Lipitor 10 mg at bedtime. 7. Cefepime 1 gram q.12h. 8. Vancomycin dose per pharmacy. 9. Ipratropium or Atrovent every 4 hours. 10. Solu-Medrol 60 IV q.8h. 11. Flagyl 500 IV q.8h. 12. Aspart insulin and aspart NovoLog per sliding scale. 13. Xopenex every 6 hours p.r.n. 14. Atrovent every 2 hours p.r.n. 15. Heparin 5000 subcutaneous q.12h. 16. Colace 100 mg b.i.d. 17. Protonix 40 IV daily. 18. Zofran p.r.n. 19 Tylenol p.r.n. 20. Hustle p.r.n. 21. Morphine p.r.n. 22. Colace p.r.n. ASSESSMENT AND PLAN: This is a 76-year-old female with history of coronary artery disease , metastatic ovarian cancer stage IV with carcinomatosis, status post debulking surgery, previous hi story of breast cancer, also recent unfortunate hemorrhagic CVA, dysphagia, G-tube feeding, who now presented with sepsis secondary to pneumonia and urinary tract infection, also moderate left pleural effusion. 1. Respiratory. Continue supportive care. The patient with moderate left pleural effusion persist ent. We will consult pulmonology regarding possible thoracentesis for symptomatic relief of her sym ptoms. Continue diuretic therapy, breathing treatment and taper down steroids. The patient is on a ntibiotics for aspiration pneumonia or healthcare-related pneumonia. 2. Cardiovascular: The patient remains tachycardic, likely from sepsis, anxiety, pain. Continue a ntibiotic management, beta blockers and pain medications, treat underlying medical issue. The patie nt is on heparin for deep venous thrombosis prophylaxis, aspirin for cardiac protection. Se Stronghdat's input. Follow up echocardiogram results. Remains on diuretic therapy. BNP is high . 3. Gastrointestinal. Continue Protonix for gastrointestinal prophylaxis. 4. Infectious disease. The patient with urinary tract infection and pneumonia. Follow up urine cu lture results. The patient also has previous history of Clostridium difficile colitis. Continue ce fepime, vancomycin and Flagyl. White count remains high. The patient also is on IV steroids. 5. Metastatic ovarian cancer with evidence of carcinomatosis, status post debulking surgery. On to p of that she had a stroke. Overall, prognosis is poor. Would recommend hospice care. 6. Dysphagia and aphasia, status post cerebrovascular accident. Continue G-tube feeding as the pat ient appears to be better today. 7. Anemia. Continue to monitor hemoglobin and hematocrit. P.r.n. transfusion. 8. Dehydration, likely from sepsis. Observe. 9. Diabetes mellitus. Glucose levels are well controlled. Continue Accu-Cheks and insulin coverag e as needed. 10. The patient is selective code only, no chest compressions, but I am discussing with the family the patient's condition. Would recommend full DNR and possible comfort measures. 11. We will definitely try to keep patient comfortable with p.r.n. Ativan and morphine. We will fo llow. Dictated By: LUZ MURO/PHYLLIS Conf#: [id number] DID#: [id number]
--- NOTE | 2017-01-12 13:22 | CONS ---
DATE OF ADMISSION: 01/10/2017 DATE OF CONSULTATION: 01/12/2017 TYPE OF CONSULTATION: Pulmonary. REASON FOR CONSULTATION: Shortness of breath. Thank you, Dr. Cao, for this consultation. HISTORY OF PRESENT ILLNESS: This is an unfortunate 76-year-old lady with a history of breast cancer , status post lumpectomy, ovarian cancer stage IV, with recent debulking surgery secondary to carcin omatosis, who presented with increasing altered mental status and shortness of breath, this morning found to be more altered. The patient was found to be more somnolent and in more respiratory distres s the last 24 hours. I was called to evaluate. PAST MEDICAL HISTORY: Includes coronary artery disease, breast cancer with lumpectomy and node diss ection on the left, a history of metastatic ovarian cancer with carcinomatosis and debulking surgery , a history of hemorrhagic CVA, dysphagia, aphasia, a history of Clostridium difficile colitis. MEDICATIONS: Per chart. ALLERGIES: NONE. PHYSICAL EXAMINATION: GENERAL: Chronically ill-appearing lady, largely somnolent, who grimaces to painful stimuli. VITAL SIGNS: Temperature 98, pulse is 100, blood pressure 125/78, O2 saturation 96% on 3 L nasal ca nnula. NECK: Supple. No JVD or lymphadenopathy. CARDIAC EXAM: S1, S2. No added sounds or murmurs. CHEST: Diminished air entry bilaterally. ABDOMEN: Soft, nontender. No guarding or rebound. EXTREMITIES: No cyanosis, clubbing or edema. NEUROLOGIC: Generalized weakness. LABORATORY: White count 17, hemoglobin 9.9, platelets 382. BUN 46, creatinine 0.87, BNP 74836, INR 1.1. Arterial blood gas with a pH of 7.4, pCO2 of 33, pO2 of 130. Chest x-ray shows left pleural effusion. IMPRESSION AND PLAN: 1. Metastatic ovarian cancer, status post debulking surgery. 2. History of breast cancer. 3. History of lumpectomy. 4. Large pleural effusion, possibly metastatic in origin. The patient will require: 1. Thoracentesis, left lung. 2. Aspiration precautions. 3. Supplemental O2. 4. Broad-spectrum antibiotics. 5. Gentle diuresis as tolerated. 6. Consider a discussion about code status, given her overall very poor prognosis. Dictated By: BALDO BISHOP MD SV/PHYLLIS Conf#: [id number] [facility]#: [id number]
[2017-01-12] MEDS: VANCOMYCIN 500MG/NS (PMX) 100 ML IVPB SCH (21:43)
[2017-01-12] MEDS: ATORVASTATIN 10 MG TAB GTB SCH (21:46)
[2017-01-12] MEDS: METHYLPREDNISOLONE 40 MG INJ IV SCH (21:48)
[2017-01-13] VITALS (15 sets, daily range): BP systolic 127–181; BP diastolic 77–93; PULSE 98–122; RESP 16–30
[2017-01-13] MEDS: IPRATROPIUM (NEB) 0.5 MG/2.5 ML AMP HHN SCH ×6 (01:08→21:11)
[2017-01-13] MEDS: LORAZEPAM 2 MG INJ IV PRN ×2 (01:17→23:42)
[2017-01-13] MEDS: ACCU-CHEK XX SCH (02:00)
[2017-01-13] MEDS: PANTOPRAZOLE 40 MG INJ IV SCH (05:17)
[2017-01-13] MEDS: metroNIDAZOLE 500 MG/NS (PMX) 100 ML IVPB SCH ×3 (05:17→23:43)
--- NOTE | 2017-01-13 07:22 | CONS ---
DATE OF ADMISSION: 01/10/2017 DATE OF CONSULTATION: 01/12/2017 TYPE OF CONSULTATION: Cardiology. REFERRING PHYSICIAN: Luz Tolbert MD REASON FOR CONSULTATION: Coronary artery disease, respiratory failure, congestive heart failure. CHIEF COMPLAINT: Sepsis, pneumonia, urinary tract infection, respiratory failure. HISTORY OF PRESENT ILLNESS: Thank you for this referral. History was obtained from extensive revie w of the chart, review of the old chart, discussion with the physician and staff. Patient herself i s unable to provide any history to me. This is an unfortunate 76-year-old Faroese female with histor y of coronary artery disease, status post bypass, history of breast cancer, lumpectomy, history of o varian cancer stage IV, status post recent debulking surgery and positive ovarian carcinomatosis. T he patient also has a history of hemorrhagic stroke. The patient has been in a half-way, was br ought in because of beginning of shortness of breath and sepsis and pneumonia. The patient is nonve rbal, he is aphasic. Also has been in vent dependent respiratory distress. This morning is severel y hypertensive. Also, has been tachycardic. No other history could be obtained from the patient. PAST MEDICAL HISTORY: As above-mentioned, patient has history of coronary artery disease, status po st coronary bypass, history of breast carcinoma status post lumpectomy and lymph node dissection of the left side, history of metastatic ovarian cancer stage IV with carcinomatosis, status post debulk ing surgery, history of hemorrhagic CVA, dysphagia, aphagia, history of CVA in the past, history of anemia. SURGICAL HISTORY: History of coronary bypass, history of salpingo-oophorectomy, debulking surgery _ ___ ovarian cancer, history of lumpectomy. MEDICATIONS PRIOR TO ADMISSION: Include: 1. Iron. 2. Lipitor. 3. Metoprolol 12.5. 4. [place] p.r.n. 5. Lasix 20. 6. Aspirin 325. 7. Potassium. 8. Has been started on antibiotics. REVIEW OF SYSTEMS: As above mentioned. The patient has a G-tube and is aphasic and is unable to eat or speak. All other negative except for above-mentioned. PHYSICAL EXAMINATION: VITAL SIGNS: Temperature 98.1, heart rate of 128, blood pressure of 190/110. Respiratory rate of 3 2, saturating 96%. HEENT: Normocephalic, atraumatic. Appears to be in respiratory distress ____ is aphasic. NECK: Positive for JVD. CARDIOVASCULAR: Tachycardic, systolic murmur. PULMONARY: Rhonchi at the base. GASTROINTESTINAL: Status post recent surgery with some erythema at the vent site. EXTREMITIES: With trivial lower extremity edema. NEUROLOGIC: Awake aphasic, though. LABORATORY: Sodium 149, potassium 4.3, BUN of 46, creatinine 0.83, glucose 119. Hemoglobin A1c of 6.7. Magnesium is 2.6. Albumin is 3.5. TSH is 0.585. WBC of 17, hemoglobin 9.9, platelets 382. O n admission pH of 7.4, pCO2 of 33, pO2 of 130, white count of 20. DIAGNOSTIC DATA: Chest x-ray shows pulmonary infiltrates in the left lung which can be the result o f pneumonia. EKG was personally reviewed, sinus tachycardia with T-wave inversion anteriorly consistent with ante rior ischemia. ASSESSMENT AND PLAN: 1. Hypoxemic respiratory failure. 2. Coronary artery disease, history of coronary bypass. 3. Abnormal EKG, probably related to above. 4. Hypertension. 5. History of hemorrhagic CVA. 6. Dyslipidemia. 7. Diabetes. 8. History of metastatic ovarian cancer. 9. Dysphagia status post PEG placement. 10. Azotemia. RECOMMENDATIONS: I will give the patient a dose of IV Lasix. Increase the metoprolol to q.i.d. and monitor closely. Change the aspirin to 81 mg daily only. Echocardiogram has been ordered. We olga l try to check and follow. Setting as tolerated will be continued. Nutritional support will be cont inued as tolerated. Long-term prognosis appears to be poor though. Diabetic management as per Dr. Tolbert. Will continue to monitor on telemetry. Thank you for this referral. Dictated By: STACY LEIVA MD AV/NTS Conf#: [id number] DID#: [id number] CC: LUZ TOLBERT MD;*End*
[2017-01-13 07:51] LABS: ADD SCAN DIFF NO
[2017-01-13 07:55] LABS: BASOPHILS % 0.1 % (0.0-2.0); HEMATOCRIT 32.8 % (37.0-47.0); HEMOGLOBIN 10.1 g/dl (12.0-16.0); LYMPHOCYTES # 0.9 10^3/ul (0.8-2.9); LYMPHOCYTES % 6.4 % (15.0-51.0); MEAN CORPUSCULAR HEMOGLOBIN 27.5 pg (29.0-33.0); MEAN CORPUSCULAR HGB CONC 30.8 g/dl (32.0-37.0); MEAN CORPUSCULAR VOLUME 89.4 fl (82.0-101.0); MEAN PLATELET VOLUME 9.6 fl (7.4-10.4); MONOCYTE # 0.8 10^3/ul (0.3-0.9); MONOCYTES % 5.6 % (0.0-11.0); NEUTROPHIL # 12.7 10^3/ul (1.6-7.5); NEUTROPHILS % 86.2 % (39.0-77.0); NUCLEATED RED BLOOD CELLS% 0.2 /100WBC (0.0-0.0); PLATELET COUNT 354 10^3/UL (140-415); RED BLOOD COUNT 3.67 10^6/ul (4.20-5.40); RED CELL DISTRIBUTION WIDTH 17.4 % (11.5-14.5); WHITE BLOOD COUNT 14.7 10^3/ul (4.8-10.8)
[2017-01-13 08:10] LABS: ALBUMIN 3.3 g/dl (3.3-4.9); ALBUMIN/GLOBULIN RATIO 0.82; BILIRUBIN,INDIRECT 0.3 mg/dl (0-1.1); BILIRUBIN,TOTAL 0.3 mg/dl (0.2-1.3); CALCIUM 8.1 mg/dl (8.4-10.2); CREATININE 0.88 mg/dl (0.44-1.00); INR 1.22; MAGNESIUM 2.9 mg/dl (1.7-2.5); POTASSIUM 3.7 mmol/L (3.5-5.1); PROTIME 15.5 Sec (12.2-14.2); PT RATIO 1.2; TOTAL PROTEIN 7.3 g/dl (6.1-8.1)
[2017-01-13] MEDS: DOCUSATE SODIUM 10 MG/ML (10ML CUP) GTB SCH ×2 (08:26→20:21)
[2017-01-13] MEDS: ASPIRIN 81 MG TAB GTB SCH (08:26)
[2017-01-13] MEDS: LISINOPRIL 10 MG TAB GTB SCH (08:26)
[2017-01-13] MEDS: METHYLPREDNISOLONE 40 MG INJ IV SCH ×2 (08:26→20:20)
[2017-01-13] MEDS: METOPROLOL 25 MG TAB GTB SCH ×2 (08:27→12:19)
[2017-01-13] MEDS: HEPARIN 5,000 UNIT/0.5 ML VIAL SC SCH ×2 (08:28→20:25)
[2017-01-13] MEDS: INSULIN ASPART [NOVOLOG] 3 ML PEN SC SCH ×4 (08:29→20:25)
[2017-01-13 08:39] LABS: THYROID STIMULATING HORMONE 0.395 MIU/L (0.465-4.680)
[2017-01-13] MEDS: CEFEPIME 1GM/50 ML (PMX) 50 ML IVPB SCH ×2 (08:41→20:20)
--- NOTE | 2017-01-13 13:02 | RADRPT ---
Echocardiogram Report Patient Name: OLIVER REYNA Gender: Female Date: 1940 Study Date: 12-Jan-2017 Molding Associate: Brent VALDEZ [facility] Location: 5547 Ref. Physician: LUZ TOLBERT Quality: Technically Difficult Study Procedures: Transthoracic echocardiogram with complete 2D, M-Mode, and doppler examination. Indications: Shortness of breath. Tachycardia. 2D/M Mode Doppler Measurement Value Normal Ranges Measurement Value Normal Ranges LVIDd 2D 4.0 3.5 - 5.6 cm PELON Vmax 1.1 cm2 LVIDs 2D 1.7 2.1 - 4.1 cm AV Peak Salvatore 2.0 m/sec FS 2D 55.9 % AV Peak PG 17.0 mmHg LVPWd 2D 0.6 0.6 - 1.1 cm AI Peak PG 59.0 mmHg IVSd 2D 0.6 0.6 - 1.1 cm AI Peak Salvatore 3.8 m/sec IVS/LVPW 2D 1.0 AI PHT 596.0 msec AoR Diam 2D 2.1 2.0 - 3.7 cm LVOT Peak Salvatore 1.1 m/sec LA/Ao 2D 2 0 - 1 LVOT Peak PG 5.0 mmHg EDV 2D 61.6 cm3 MV E Peak Salvatroe 1.0 m/sec ESV 2D 5.3 cm3 MV A Peak Salvatore 1.3 m/sec LA Dimen 2D 3.2 2.3 - 4.0 cm MV E/A 0.8 LVOT Diam 1.6 cm MV Decel Time 130 msec LVOT Area 2.0 cm2 MV E/A 0.8 TR Peak Salvatore 3.8 m/sec TR Peak PG 57.0 mmHg RVSP 65.0 mmHg Findings Left Ventricle: Normal left ventricular systolic function. Normal left ventricular cavity size. Ejection fraction is visually estimated at 60 %. Tissue Doppler/Mitral Doppler indices are consistent with impaired relaxation (Stage I diastolic dysfunction). Right Ventricle: Normal right ventricular size. Normal right ventricular systolic function. Left Atrium: The left atrium is normal in size. Right Atrium: The right atrium is normal in size. Mitral Valve: Mild mitral leaflet calcification. Moderate mitral annular calcification. Mild mitral valve regurgitation. Aortic Valve: Aortic valve not well visualized. No hemodynamically significant aortic stenosis by doppler. Trace to mild aortic valve regurgitation. Tricuspid Valve: Normal appearance of the tricuspid valve. There is moderate tricuspid regurgitation. Pulmonic Valve: Pulmonic valve not well visualized. Pericardium: Pleural effusion seen. Aorta: Normal aortic root. IVC: Normal size and normal respiratory collapse consistent with normal right atrial pressure. Conclusions 1.Normal left ventricular systolic function. Normal left ventricular cavity size. Ejection fraction is visually estimated at 60 %. Tissue Doppler/Mitral Doppler indices are consistent with impaired relaxation (Stage I diastolic dysfunction). 2.Mild mitral leaflet calcification. Moderate mitral annular calcification. Mild mitral valve regurgitation. 3.Aortic valve not well visualized. No hemodynamically significant aortic stenosis by doppler. Trace to mild aortic valve regurgitation. 4.Normal appearance of the tricuspid valve. There is moderate tricuspid regurgitation. 5.Pleural effusion seen. Electronically Signed By: Raymundo Cosby 13-Jan-2017 13:01:41 -0700 Patient Name: OLIVER REYNA Study Date: 12-Jan-2017 [id number]
[2017-01-13] MEDS: ACETYLCYSTEINE 600 MG CAP PO SCH ×2 (14:30→20:31)
[2017-01-13] MEDS ORDERED: SOD CHLORIDE 0.9% 1,000 ML IV SCH (14:30)
[2017-01-13] MEDS ORDERED: BARIUM SULF 2% 450 ML BTL (BERRY SMOOTHIE) PO ONE (14:30)
--- NOTE | 2017-01-13 15:52 | PN ---
DATE: 01/13/2017 CARDIOLOGY FOLLOWUP SUBJECTIVE: Discussed with the staff. Rhythm strip reviewed. The patient remains in sinus rhythm , sinus tachycardia. The patient remains nonverbal and aphasic. Discussed with Dr. Tolbert. MEDICATIONS: Reviewed. PHYSICAL EXAMINATION: VITAL SIGNS: Temperature 98.2, heart rate of 116, blood pressure 160/80, respiration rate of 20, sa turating 97%. HEENT: Normocephalic, atraumatic. Pupils are equal. Appears to be anxious. CARDIOVASCULAR: Tachycardic. PULMONARY: Anteriorly with no wheezes. Rhonchi at the bases. GASTROINTESTINAL: Soft, status post previous surgeries. EXTREMITIES: With trivial edema. NEUROLOGIC: Awake, however, aphasic. PSYCHIATRIC: Anxious. LABORATORY DATA: WBC of 14.7, hemoglobin 10.1, platelets 354. Sodium 150, potassium 3.7, BUN of 60 , creatinine 0.88, glucose 230. INR is 1.22. Chest x-ray shows a stable large effusion in the left. Echocardiogram was personally reviewed, whic h showed ejection fraction estimated about 60%. ASSESSMENT AND PLAN: 1. Sinus tachycardia, multifactorial. 2. Respiratory failure. 3. History of hemorrhagic cerebrovascular accident. 4. Hypertension. 5. Dyslipidemia. 6. Diabetes. 7. Metastatic ovarian cancer. 8. Pleural effusion. Thoracentesis is pending. RECOMMENDATIONS: I will increase the metoprolol dose given her hypertension and tachycardia. Rakesh nue with the respiratory care. Dictated By: STACY LEIVA MD AV/PHYLLIS Conf#: [id number] DID#: [id number] CC: LUZ TOLBERT MD;*End*
--- NOTE | 2017-01-13 15:55 | PN ---
DATE: 01/13/2017 SUBJECTIVE: Patient seen and remains quite lethargic. Case discussed with Dr. Sandhu and Dr. Hameed at. I just called the and he gave me the phone number for the son who speaks Japanese. His name is Brayan, phone number [phone]. I left a message. I briefly spoke with the social welfare administrator earlier, not much assistance provided. PHYSICAL EXAMINATION: VITAL SIGNS: Temperature 98.2, pulse 115, respirations 20, blood pressure 162/81, saturation 96% on 6 liters. GENERAL: The patient is lethargic, very weak, pale. HEENT: Dry mucous membranes. CARDIOVASCULAR: S1 and S2, tachycardic. LUNGS: Decreased bilaterally, otherwise clear. ABDOMEN: Soft, slightly distended. G-tube is in place. EXTREMITIES: There is no clubbing, cyanosis, or edema. LABORATORY DATA: White count 14.7, hemoglobin 10.1, hematocrit 33, platelets 354, neutrophils 86%, lymphocytes 6%. Chemistry: Sodium was 150, potassium 3.7, chloride 120, bicarbonate 21, BUN is 16, creatinine 0.88, glucose of 230. Last glucose levels 236 and 223. TSH is 0.395. Free T4 is leobardo l at 1. BNP is high at 14,000. UA was positive and urine culture did show ESBL E. coli sensitive t o amikacin, cefepime, imipenem, and nitrofurantoin. MEDICATIONS: Include: 1. Solu-Medrol 40 IV hours. 2. Aspirin 81 mg daily. 3. Lopressor 25 daily. 4. Zestril 10 mg daily. 5. Hypoglycemia protocol. 6. Accu-Chek q.a.c. and at bedtime. 7. Lipitor 10 mg at bedtime. 8. Cefepime 1 gram q.12h. 9. Vancomycin dose per pharmacy. 10. ____p.r.n. Ativan q.4h. 11. Flagyl 500 IV q.8h. 12. Xopenex q.6h. 13. Atrovent q.2h. p.r.n. 14. Heparin 5000 subQ q12h. 15. Colace 10 mg b.i.d. 16. Protonix 40 mg daily. 17. Zofran p.r.n. 18. Tylenol p.r.n. 19. [place] p.r.n. 20. Morphine p.r.n. 21. Colace p.r.n. 22. Vancomycin p.r.n. Of note, patient does have gross hematuria. ASSESSMENT AND PLAN: This is a very unfortunate 76-year-old female with history of garcia ry artery disease, metastatic ovarian cancer stage IV, with carcinomatosis, status post debulking carrington rgery, history of breast cancer, unfortunate status post recent hemorrhagic cerebrovascular accident , dysphagia, G-tube feeding, now presented with sepsis secondary to pneumonia, UTI and moderate lef t pleural effusion. 1. Respiratory. The patient to undergo thoracentesis today. Awaiting the procedure to be done. C ase discussed with nursing staff and electrician supervisor airplane. Hopefully, that will definitely provide some sy mptomatic relief. Will send fluid to rule out malignancy or infection. Remains on antibiotics for healthcare-related pneumonia. 2. Cardiovascular: The patient with tachycardia, persistent, likely multifactorial. Continue bloo d thinners. Hemoglobin and hematocrit remain stable. Continue beta blockers. Dr. Cosby is carolinei best. 3. Gastrointestinal. Continue gastrointestinal prophylaxis. 4. Infectious disease. Currently being treated for beta-lactamase Escherichia coli in the urine an d pneumonia. Continue cefepime, vancomycin and Flagyl. The patient is afebrile. 5. Metastatic ovarian cancer with carcinomatosis, status post debulking surgery. Prognosis is guar ded. I would recommend hospice care. 6. Dysphagia and aphasia. Continue G-tube feeding for now. 7. Anemia. Hemoglobin and hematocrit stable, observe. 8. Dehydration also worsened by diuretic therapy. 9. Diabetes mellitus. Start the patient on basal insulin. Continue Accu-Chek before meals and at bedtime with insulin coverage. 10. I just left a message with the son. I would like to talk to him about the patient's code statu s and plan of care, as my recommendation would be comfort measures. We will follow. Dictated By: LUZ MURO/PHYLLIS Conf#: [id number] DID#: [id number]
--- NOTE | 2017-01-13 16:13 | CONS ---
Date/Time of Note Date/Time of Note DATE: 01/13/17 TIME: 16:11 Consult Date/Type/Reason Admit Date/Time Jan 10, 2017 at 19:22 Initial Consult Date Type of Consultation: Pulmonary Subjective Still with mild respiratory distress. Pending thoracentesis. Objective Vital Signs Date Time Temp Pulse Resp B/P Pulse Ox O2 Delivery O2 Flow Rate FiO2 01/13/17 16:09 122 01/13/17 15:43 98.6 18 181/93 97 01/13/17 12:56 Nasal Cannula 6.0 01/10/17 21:40 40 Intake and Output 01/12/17 01/12/17 01/13/17 15:00 23:00 07:00 Intake Total 710 ml 860 ml Output Total 1100 ml 350 ml Balance -390 ml 510 ml Exam PHYSICAL EXAMINATION: GENERAL: Chronically ill-appearing lady, largely somnolent, who grimaces to painful stimuli. VITAL SIGNS: as above. NECK: Supple. No JVD or lymphadenopathy. CARDIAC EXAM: S1, S2. No added sounds or murmurs. CHEST: Diminished air entry bilaterally. ABDOMEN: Soft, nontender. No guarding or rebound. EXTREMITIES: No cyanosis, clubbing or edema. NEUROLOGIC: Generalized weakness. Results/Medications Result Diagram: 01/13/17 0642 01/13/17 0642 Results 24 hrs Laboratory Tests Test 01/12/17 17:19 01/12/17 21:50 01/13/17 02:05 01/13/17 06:42 Bedside Glucose 148 169 215 White Blood Count 14.7 H Red Blood Count 3.67 L Hemoglobin 10.1 L Hematocrit 32.8 L Mean Corpuscular Volume 89.4 Mean Corpuscular Hemoglobin 27.5 L Mean Corpuscular Hemoglobin Concent 30.8 L Red Cell Distribution Width 17.4 H Platelet Count 354 Mean Platelet Volume 9.6 Neutrophils % 86.2 H Lymphocytes % 6.4 L Monocytes % 5.6 Eosinophils % 0.0 Basophils % 0.1 Nucleated Red Blood Cells % 0.2 H Neutrophils # 12.7 H Lymphocytes # 0.9 Monocytes # 0.8 Eosinophils # 0.0 Basophils # 0.0 Nucleated Red Blood Cells # 0.0 Prothrombin Time 15.5 H Prothrombin Time Ratio 1.2 INR International Normalized Ratio 1.22 Sodium Level 150 H Potassium Level 3.7 Chloride Level 120 H Carbon Dioxide Level 21 Anion Gap 13 Blood Urea Nitrogen 60 H Creatinine 0.88 Glucose Level 230 #H Calcium Level 8.1 L Magnesium Level 2.9 H Total Bilirubin 0.3 Direct Bilirubin 0.00 Indirect Bilirubin 0.3 Aspartate Amino Transf (AST/SGOT) 35 Alanine Aminotransferase (ALT/SGPT) 30 Alkaline Phosphatase 114 B-Type Natriuretic Peptide 81248 H Total Protein 7.3 Albumin 3.3 Globulin 4.00 H Albumin/Globulin Ratio 0.82 Thyroid Stimulating Hormone (TSH) 0.395 L Free Thyroxine 1.00 Test 01/13/17 07:51 01/13/17 12:01 Bedside Glucose 223 H 236 H Medications Current Medications Ondansetron HCl (Zofran Inj) 4 mg Q6H PRN IV NAUSEA AND/OR VOMITING; Start at 22:00 Acetaminophen (Tylenol Tab) 650 mg Q6H PRN PO PAIN LEVEL 1-3 OR FEVER; Start at 22:00 Acetaminophen/ Hydrocodone Bitart ([place] (5/325)) 1 tab Q6H PRN PO PAIN LEVEL 4 -6; Start 01/10/17 at 22:00 Morphine Sulfate (morphine) 2 mg Q4H PRN IV PAIN LEVEL 7-10 Last administered on 01/12/17 17:21; Admin Dose 2 MG; Start 01/10/17 at 22:00 Docusate Sodium (Colace) 100 mg Q12H PRN PO CONSTIPATION; Start 01/10/17 at 22: 00 Heparin Sodium (Porcine) (Heparin (5000 Units/0.5 ml)) 5,000 unit Q12 SC Last administered on 01/13/17 08:28; Admin Dose 5,000 UNIT; Start 01/11/17 at 09:00 Atorvastatin Calcium (Lipitor) 10 mg QHS GTB Last administered on 01/12/17 21: 46; Admin Dose 10 MG; Start 01/11/17 at 21:00 Docusate Sodium 10 mg 10 mg BID GTB Last administered on 01/13/17 08:26; Admin Dose 10 MG; Start 01/11/17 at 09:00 Vancomycin HCl (Vancocin) 100 ml @ 100 mls/hr Q24H IVPB Last administered on 21:43; Admin Dose 100 MLS/HR; Start 01/11/17 at 20:00 Pantoprazole (Protonix Iv) 40 mg DAILY@06 IV Last administered on 01/13/17 05: 17; Admin Dose 40 MG; Start 01/11/17 at 06:00 Diagnostic Test (Pha) 1 ea 1 ea 02 XX ; Start 01/12/17 at 02:00 Cefepime HCl (Maxipime 1gm/50 ml (Pmx)) 50 ml @ 100 mls/hr Q12 IVPB Last administered on 01/13/17 08:41; Admin Dose 100 MLS/HR; Start 01/11/17 at 21:00 Lorazepam 0.5 mg 0.5 mg Q2 PRN IV ANXIETY Last administered on 01/13/17 01:17 ; Admin Dose 0.5 MG; Start 01/11/17 at 17:00 Metronidazole (Flagyl 500 Mg (Pmx)) 100 ml @ 100 mls/hr Q8 IVPB Last administered on 01/13/17 13:35; Admin Dose 100 MLS/HR; Start 01/11/17 at 16:30 Miscellaneous Information 1 ea NOTE XX ; Start 01/12/17 at 07:30 Glucose (Glutose) 15 gm Q15M PRN PO DECREASED GLUCOSE; Start 01/12/17 at 07:30 Glucose (Glutose) 22.5 gm Q15M PRN PO DECREASED GLUCOSE; Start 01/12/17 at 07: 30 Dextrose (D50w Syringe) 25 ml Q15M PRN IV DECREASED GLUCOSE; Start 01/12/17 at 07:30 Dextrose (D50w Syringe) 50 ml Q15M PRN IV DECREASED GLUCOSE; Start 01/12/17 at 07:30 Glucagon (Glucagen) 1 mg Q15M PRN IM DECREASED GLUCOSE; Start 01/12/17 at 07:30 Glucose (Glutose) 15 gm Q15M PRN BUCCAL DECREASED GLUCOSE; Start 01/12/17 at 07 :30 Aspirin (Aspirin) 81 mg DAILY GTB Last administered on 01/13/17 08:26; Admin Dose 81 MG; Start 01/12/17 at 09:00 Lisinopril (Zestril) 10 mg DAILY GTB Last administered on 01/13/17 08:26; Admin Dose 10 MG; Start 01/12/17 at 09:00 Methylprednisolone Sodium Succinate (Solu-Medrol) 40 mg Q12 IV Last administered on 01/13/17t 08:26; Admin Dose 40 MG; Start 01/12/17 at 21:00 Insulin Glargine (Lantus) 6 unit DAILY@08 SC ; Start 01/14/17 at 08:00 Metoprolol Tartrate (Lopressor) 50 mg QID GTB ; Start 01/13/17 at 17:00 Acetylcysteine 600 mg 600 mg BID PO ; Start 01/13/17 at 14:30 Sodium Chloride (NS) 1,000 ml @ 70 mls/hr [id number] IV ; Start 01/13/17 at 14:30 Miscellaneous Information (*Rx Drug Level Order Reminder*) 1 ONCE ONCE XX ; Start 01/13/17 at 19:00; Stop 01/13/17 at 19:01 Assessment/Plan Chief Complaint/Hosp Course IMPRESSION 1. Metastatic ovarian cancer, status post debulking surgery. 2. History of breast cancer. 3. History of lumpectomy. 4. Large pleural effusion, possibly metastatic in origin. Plan 1. Thoracentesis, left lung. Scheduled for today. 2. Aspiration precautions. 3. Supplemental O2. 4. Broad-spectrum antibiotics. 5. Gentle diuresis as tolerated. 6. Consider a discussion about code status, given her overall very poor prognosis. Problems: BALDO BISHOP MD, [facility] Jan 13, 2017 16:13
[2017-01-13] MEDS ORDERED: LIDOCAINE 1% (MPF) 5 ML VIAL ONE (16:45)
[2017-01-13] MEDS ORDERED: METOPROLOL 25 MG TAB GTB SCH (17:00)
[2017-01-13] MEDS ORDERED: IODIXANOL LOCM 100 ML BTL ONE (17:00)
[2017-01-13] MEDS ORDERED: SOD CHLORIDE 0.9% 100 ML ONE (17:00)
--- NOTE | 2017-01-13 17:47 | RADRPT ---
PROCEDURE: Ultrasound guided thoracentesis CLINICAL INDICATION: Pleural fluid TECHNIQUE: Multiple sonographic images were obtained through the patient's chest. A site in the p geeta's left lower chest was selected and marked. The area was prepped and draped in the usual ster ile fashion. 1% lidocaine was utilized. A 19-gauge Yueh needle was advanced into the pleural space and the introducer was connected to a vacuum drainage system. A total of 1000 cc of clear yellow fl uid were drained at the end of the procedure. The patient tolerated the procedure well. The specimen was sent for laboratory evaluation. RPTAT: AA COMPARISON: None FINDINGS: Pleural effusion. RPTAT: AA IMPRESSION: Uncomplicated ultrasound-guided left thoracentesis. Physician Moise Date Time Electronically viewed and signed by Physician Moise on 01/13/2017 17:46 /
[2017-01-13] MEDS: METOPROLOL 50 MG TAB GTB SCH ×2 (18:05→20:23)
[2017-01-13 18:35] LABS: FLUID TYPE THORACENTESIS FLUID
[2017-01-13 18:36] LABS: FLUID GLUCOSE 183 mg/dl
[2017-01-13 18:37] LABS: FLUID TOTAL PROTEIN 4.8 g/dl; FLUID TYPE THORACENTESIS FLUID
[2017-01-13] MEDS: ATORVASTATIN 10 MG TAB GTB SCH (20:21)
[2017-01-13] MEDS: morphine 2 MG INJ IV PRN (20:21)
[2017-01-13 20:45] LABS: FLUID APPEARANCE BLOODY; FLUID RBC EST 3+; FLUID TYPE PLEURAL; FLUID WBC'S 483 /cmm
[2017-01-13 20:46] LABS: FLUID LYMPHOCYTES 73 %; FLUID MONOCYTES 11 %; FLUID NEUTROPHILS 16 %
[2017-01-13] MEDS: VANCOMYCIN 500MG/NS (PMX) 100 ML IVPB SCH (21:20)
[2017-01-13] MEDS ORDERED: FUROSEMIDE 40 MG INJ IV ONE (22:00)
[2017-01-13] MEDS ORDERED: SOD CHLORIDE 0.9% IVPB SCH (22:00)
[2017-01-13] MEDS ORDERED: VANCOMYCIN IVPB SCH (22:00)
[2017-01-13 22:04] LABS: AADO2 Arterial 584.2 mmHg (7.0-24.0); Allen Test ACCEPTAB; Arterial Base Excess -11.3 mmol/L (-3.0-3); Arterial COHb 0.3 % (0.0-3.0); Arterial Fraction of Oxyhgb 94.4 % (93.0-99.0); Arterial HCO3 14.8 mmol/L (22.0-26.0); Arterial MetHb 0.5 % (0.0-1.5); MODE MASK - NRB
[2017-01-14] VITALS: BP 134/76; RESP 16
[2017-01-14 00:11] VITALS: PULSE 109
[2017-01-14 00:22] VITALS: PULSE 108
[2017-01-14 00:57] VITALS: PULSE 0
[2017-01-14] MEDS: IPRATROPIUM (NEB) 0.5 MG/2.5 ML AMP HHN SCH (01:00)
--- NOTE | 2017-01-14 01:43 | EN ---
Date/Time of Note Date/Time of Note DATE: 01/14/17 TIME: 00:52 Event Note Medicine Medicine Event Note RAPID RESPONSE TEAM The rapid response team was called to room 5547 at 0020 for this 76-year-old female in respiratory distress who was originally admitted for sepsis and pneumonia. When I arrived, she was found to be in respiratory distress with agonal respirations while wearing BiPAP, her was at the bedside. She had been put on BiPAP approximately 2 hours prior, after the results of her ABG , which was done at 2201 while she was on a nonrebreather with an FiO2 of 100%, came back. I reviewed that ABG: PH 7.257; PCO2 33.9; PO2 94.9; bicarb 14.8; base excess -11.3; hemoglobin 12. Physical exam shows her to be mouth breathing with agonal respirations. Her BP was normal and her HR elevated at 113. Her heartbeat had a tachy rate and a regular rhythm. Respiratory rate approximately 30. Her lungs had decreased air flow throughout. Coarse rhonchi were noted. This was a no chest compression patient. Her was present and I spoke with him about her options. She either needed to be intubated or put on comfort care measures. He was trying to decide if he wanted her to be intubated , he was leaning towards no intubation, but their son wanted her to be. I spoke with the briefly and let him know that the decision was his to make, but that considering what other family members say is a good thing. He went to talk with his son on the phone, and when he returned, he requested that she be intubated. ER physician, Dr. Mishra, was called to come up to intubate patient which was done successfully. An ICU bed had already been set aside for her and she was being bagged. I stayed just outside the door in the hallway as I plan to accompany patient down to the ICU and make sure she was situated. Her primary doctor, Elio More, had already been advised of her respiratory status shortly after the ABG results were back. I did not feel he needed to be updated at this time. The transporter arrived, but before the transfer could be made, I was called into the room as patient's heart rate dropped into the 50s. She was given 1 amp of atropine, but her heart rate went to 36 instead of improving. At this point, she had no pulse and an amp of epi was pushed, but no ROSC. Bagging was continued throughout. With a flashlight, I checked each of patient's eyes they were both fixed and at mid position. She could not be roused with a sternal rub, but she did have meds on board from the intubation. Bagging was stopped at this point and I listened for a heartbeat while I felt for the carotid pulse. I did not hear or feel anything. I then listened to her lungs and watched her chest. There were no sounds of respiration and there was no visible chest wall movement. Time of called at 0049. I spoke briefly with patient's and let him know that she had . Critical care time spent: 35 minutes. JR BRAY DO Jan 14, 2017 01:03
--- NOTE | 2017-01-14 01:58 | QN ---
Documentation Comment Called to room 5547 emergent intubation . Patient had reportedly been desaturating on nonrebreather mask. Intubation requested by Dr. Yamilet Jackson. Patient was desaturating to level of 69 on BiPAP. ET intubation note: I performed bag mask ventilation and get the patient up to saturation of 98% from 69. RSI was used with 20 mg of etomidate and 100 mg of rocuronium. Patient was easily intubated to well visualize cords with a size 7.5 ET tube using a size Mac 4 blade. Oxygen saturation afterward was 100%. Place the patient on a ventilator settings FiO2 100%, tidal volume 500, rate 20 , no PEEP. Patient tolerated the procedure well there were no complications. Dr. Yamilet Jackson was present at bedside. RED CANCINO DO Jan 14, 2017 01:58
[2017-01-14] MEDS ORDERED: INSULIN GLARGINE [LANtus] 3 ML PEN SC SCH (08:00)
--- NOTE | 2017-01-14 10:13 | RADRPT ---
PROCEDURE: CT chest, abdomen, and pelvis with contrast. CLINICAL INDICATION: Pain. History of breast and ovarian cancer. TECHNIQUE: CT scan of the chest, abdomen, and pelvis was performed after the uneventful intravenous administrat ion of 85 cc of Visipaque 320. Coronal and sagittal reformatted images were obtained from the axial source images. Images were reviewed on a high-resolution PACS workstation. The total exam CTDI equal s 5.21 mGy and the total exam DLP equals 367.76 mGy-cm. One or more of the following dose reduction techniques were used: - Automated exposure control. - Adjustment of the mA and/or kV according to patient size. - Use of iterative reconstruction technique. COMPARISON: None available. FINDINGS: Lungs, pleura, and airways: There are small bilateral pleural effusions with associated dependent compressive atelectasis. Ther e is no focal consolidation or pneumothorax. There has been prior median sternotomy.. There are no concerning pulmonary nodules or masses. The tracheobronchial tree is patent and normal in course and caliber. Cardiovascular system and mediastinum: The heart is normal in size without pericardial thickening or effusion. There are multivessel garcia ry artery calcifications. There are atherosclerotic changes of the aorta, which is nonaneurysmal. Th e esophagus is mildly distended with fluid throughout its course. There are enlarged paratracheal an d right axillary lymph nodes with a dominant paratracheal node measuring 11 mm in short axis. There are surgical clips in the left axilla. Hepatobiliary system and spleen: There is diffuse fatty infiltration of the liver. There is no focal hepatic lesion identified. Ther e is no intra or extrahepatic biliary ductal dilatation. There layering stones within the gallbladde r. The spleen is unremarkable. The pancreas is unremarkable. Genitourinary system and adrenal glands: There is an indeterminate 2.5 cm lesion at the upper pole of the right kidney with associated loss o f the normal renal cortex in this region. There is no left renal mass. There is no hydronephrosis. There is a Milian catheter within the urinary bladder, which contains some air. The uterus and adne xa are unremarkable. The adrenal glands are unremarkable. Gastrointestinal system: There is a percutaneous gastrostomy tube within the stomach. There is no evidence of bowel obstructi on. The appendix is not identified. Peritoneum and lymphatics: There is abnormal soft tissue density throughout the peritoneal cavity, most pronounced within the u pper abdomen, consistent with carcinomatosis. There are scattered areas of loculated ascites throug hout the abdomen and pelvis, some of which demonstrates surrounding thickening of the peritoneum. Th ere are enlarged periaortic lymph nodes which do not meet size criteria for adenopathy. Musculoskeletal system: There are no concerning osseous lesions. There is mild to moderate multilevel degenerative spondylos is. IMPRESSION: 1. Extensive abnormal soft tissue density throughout the peritoneal cavity, most pronounced in the upper abdomen, consistent with carcinomatosis. Small volume of loculated ascites throughout the abd omen and pelvis with thickening of the overlying peritoneum, which may be reactive in nature. Perit onitis could also have this appearance. 2. Small bilateral pleural effusions with associated dependent compressive atelectasis. 3. Nonspecific prominent periaortic lymph nodes. 4. Multivessel coronary artery calcifications and atherosclerotic changes of the aorta. 5. Indeterminate 2.5 cm lesion at the upper pole of the right kidney. 6. Hepatic steatosis. 7. Nonspecific enlarged right axillary and paratracheal lymph nodes, suspicious for metastatic dise ase. RPTAT: QQ .Ulysses Bull MD, MD Date Time Electronically viewed and signed by .Ulysses Bull MD, MD on 01/14/2017 10:13 .P/
[2017-01-14] MEDS ORDERED: VANCOMYCIN 750 MG in SOD CHLORIDE 0.9% 150 ML IVPB SCH (20:00)
--- NOTE | 2017-01-18 05:33 | DS ---
DATE OF ADMISSION: 01/10/2017 DATE OF DISCHARGE: 01/14/2017 SUMMARY The patient on 01/14/2017 at 0049 a.m. REASON FOR ADMISSION: Sepsis, pneumonia, UTI, acute respiratory failure. 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 The patient has dysphagia with G-tube feeding. So the patient also has aphasia . The patient resides currently at [facility]. She has been seen by the oncologist, Dr. Delilah Novak, and she recommended either palliative chemo versus hospice care. Ov lizandroll, long-term prognosis is very poor. The patient was in usual state of health up until the day prior to admission when she briefly presented to the ER when OG tube was malfunctioned. A G-tube wa s placed and she was then transferred to [facility]. I was called and was informed that she jalloh s slight erythema at the G-tube site and I started her on vancomycin and upon evaluation of her labs , I noted that the white count was 19 and I added cefepime. I went to see the patient, I also start ed on IV hydration as her BUN and creatinine was elevated with a BUN of 16 and creatinine of 0.8. I went to see the patient and the patient was noted to be quite tachycardiac and very weak. I inform ed the patient of her guarded condition and advised her to go the hospital if the family wants to be aggressive and the family discussed it among themselves and finally, it was decided to transfer to the hospital. In the hospital, the patient was evaluated in the ER, as I already saw that at [facility], her white count was 17.3, BUN and creatinine 58/0.72 and lactic a ryan was very high at 7.4. The patient was noted to be tachypneic and slightly hypoxic. She was jeannie ford on BiPAP and chest x-ray shows bilateral pulmonary infiltrate suggestive of pneumonia. Also, sh e was found to have left pleural effusion which is partially loculated. Urine was positive as well with +2 leukocyte esterase suggestive of acute urinary tract infection, so the patient was admitted for sepsis, pneumonia and UTI in [facility] condition. I spoke with the son, Brayan, on multiple occasi ons and with the who was at bedside on multiple occasions. Family agreed to do no chest com pressions, but it was not clear about other intervention such as intubation. The patient was starte d on broad-spectrum antibiotics with cefepime and vancomycin. We were able to wean him off the BiPA P initially. I also ordered a CT scan of the chest, abdomen and pelvis with IV contrast as she was supposed to have that done with her oncologist that showed extensive abnormal soft tissue density th roughout the peritoneal cavity, most pronounced in the upper abdomen, continue with carcinomatosis, small volume of loculated ascites throughout the abdomen and pelvis with thickening of the overlying peritoneum which may be reactive in nature. Peritonitis could have this appearance. Also, small b ilateral pleural effusion with associated compressive atelectasis, nonspecific prominent periaortic lymph nodes, multivessel coronary artery calcification, and atherosclerotic changes of the aorta, in termediate 2.5 cm lesion in the upper pole of the right kidney, hepatic steatosis, nonspecific enlar ged right axillary paratracheal lymph node suspicious for metastatic disease. So this definitely co nfirmed still a very poor prognosis. We also proceeded with a thoracentesis during her stay as I co nsulted Dr. Sandhu. A thoracentesis was done and 1 liter of clear yellow fluid was aspirated. Uri ne culture did show ESBL E. coli sensitive to cefepime as patient was on the appropriate antibiotics . Unfortunately, despite the above aggressive measures, the patient did not do very well. She was noted to be worsening respiratory failure and we performed an ABG and we placed her back on BiPAP. The patient clinically did not look so good, so I instructed the nursing staff to send her to the IC U and intubate her as the patient was still a FULL CODE with some limitations but the who wa s at bedside did not want her to be intubated and wanted to continue to monitor her. The patient co ntinued to decompensate and coded and as the patient was seen by the ER physician, she at 12:49 a.m. on 01/14/2017. In addition, we found out that the fluids in her lung came back positive for m alignant cell compatible with adenocarcinoma. So overall the patient was overall very sick unfortun ately. She had metastatic ovarian cancer with carcinomatosis, also with malignant pleural effusion. FINAL DIAGNOSES: 1. Acute respiratory failure. 2. Pneumonia. 3. Malignant left pleural effusion. 4. Urinary tract infection. 5. Sepsis. 6. Metastatic ovarian cancer. 7. History of coronary artery disease. 8. Remote history of breast cancer status post treatment. 9. Dysphagia. 10. G-tube feeding. 11. Anemia. 12. Diabetes mellitus. 13. Recent hemorrhagic cerebrovascular accident. 14. Dehydration. 15. Tendency to congestive heart failure and pleural effusion. Again, her prognosis is very poor from the beginning. I did talk to the family also before about ho spice care and comfort measures, but it was quite difficult for them to make decisions. Again, heaven ent on 01/14/2017 at 12:49 a.m. Dictated By: LUZ MURO/PHYLLIS Conf#: [id number] DID#: [id number]
== END 2017-01-14 04:31 | disposition expired | DRG 871 ==
LOC: E/R 17:13 → MS4 19:22
PROVIDERS: ADMIT Internal Medicine; ATTEND Internal Medicine
PROC: 5A09357 Assistance with Respiratory Ventilation, Less than 24 Consecutive Hours, Continuous Positive Airway Pressure (ICD-10-PCS; 2017-01-10)
PROC: 0W9B3ZX Drainage of Left Pleural Cavity, Percutaneous Approach, Diagnostic (ICD-10-PCS; principal; 2017-01-13)
PROC: 5A1935Z Respiratory Ventilation, Less than 24 Consecutive Hours (ICD-10-PCS; 2017-01-14)
PROC: 0BH17EZ Insertion of Endotracheal Airway into Trachea, Via Natural or Artificial Opening (ICD-10-PCS; 2017-01-14)
DX: A41.9 Sepsis, unspecified organism (principal); J18.9 Pneumonia, unspecified organism; J96.01 Acute respiratory failure with hypoxia; N17.9 Acute kidney failure, unspecified; J91.0 Malignant pleural effusion; J91.8 Pleural effusion in other conditions classified elsewhere; C78.6 Secondary malignant neoplasm of retroperitoneum and peritoneum; C56.9 Malignant neoplasm of unspecified ovary; I69.351 Hemiplegia and hemiparesis following cerebral infarction affecting right dominant side; N39.0 Urinary tract infection, site not specified; R13.10 Dysphagia, unspecified; R65.20 Severe sepsis without septic shock; E86.0 Dehydration; I25.10 Atherosclerotic heart disease of native coronary artery without angina pectoris; D64.9 Anemia, unspecified; E78.5 Hyperlipidemia, unspecified; I69.391 Dysphagia following cerebral infarction; I69.320 Aphasia following cerebral infarction; Z79.82 Long term (current) use of aspirin; Z79.4 Long term (current) use of insulin; Z93.1 Gastrostomy status; Z95.1 Presence of aortocoronary bypass graft; Z85.3 Personal history of malignant neoplasm of breast
CPT/HCPCS: 31500; 32555; 36415; 36600; 71010; 71260; 74177; 80053; 80202; 81001; 81003; 82803; 82945; 82962; 83036; 83605; 83615; 83735; 83880; 84100; 84157; 84439; 84443; 84484; 85025; 85610; 85730; 87040; 87070; 87086; 87102; 87116; 88104; 88305; 89050; 93005; 93306; 94640; 94660; 94664; 96361; 96365; 96375; C9113; J0692; J1644; J1815; J1940; J2060; J2270; J2543; J2920; J2930; J3370; J7030; Q9967